=== PATIENT | male | born 1955 | race African-American/Black ===

== ENCOUNTER 2019-09-06 16:47 | Inpatient (IN) | payer MEDICAID ==
[2019-09-06 21:06] VITALS: BP 141/71
[2019-09-06] MEDS ORDERED: Acetaminophen 500 MG TAB PO PRN (22:41)
[2019-09-06] MEDS ORDERED: Maalox 30 mL Cup PO PRN (22:41)
[2019-09-06] MEDS ORDERED: Magnesium Hydroxide (MOM) 30 mL UDC PO PRN (22:41)
--- NOTE | 2019-09-07 09:29 | History & Physical ---
ADMIT DATE: 09/06/2019 IDENTIFYING INFORMATION: The patient is a 64-year-old male. CHIEF COMPLAINT: Unable to move around. HISTORY OF PRESENT ILLNESS: The patient was admitted, came from [facility] on a hold for danger to self, grave disability. The patient with left-sided hemiparesis on a wheelchair. When I talked to the patient, he was reported that he used cocaine last week. He reports has been depressed for the last 6 months. Unable to sleep. Appetite is good. He said sometimes he gets suicidal. He said he tried to strangle himself 2 weeks ago with a rope. He hear voices for the last 2 weeks, telling him to burn himself, kill himself, but he was willing to contract for safety. He has a history of being hospitalized at least 3 times because of his psychiatric condition, he is not sure what medication he was on. Onset of mental illness, the patient reports it was going on for the last 6 months, but has prior depression before that. Unable to be more specific. PAST PSYCHIATRIC HISTORY: The patient has been hospitalized at least 3 times. He reports he tried to strangle himself 2 weeks ago with a rope. He has been using cocaine. Substance abuse using cocaine, last used last week. He uses drugs. Unable to be specific. MEDICAL HISTORY: The patient is on a wheelchair. Hemiparesis on the left side. ALLERGIES: The patient has no known drug allergy. MEDICATIONS: He has been on Remeron 15 mg at bedtime. FAMILY HISTORY: Denies family psychiatric disorder. SOCIAL HISTORY: The patient reports he is single, never , no children. Education is 10th grade education. 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 No family psychiatric disorder, no history of abuse. MENTAL STATUS EXAMINATION: The patient is appropriately dressed, not well groomed. He was alert. He was not a very good historian. He knew that this is either July or August and its 2020. Unable to make more specific, unable tell me who is the President of [employer]. Admits to feeling depressed with decreased energy, decreased motivation, tried to kill himself 2 weeks ago. Unable to sleep. Appetite is okay. He reports that hearing voices last 2 weeks to burn, kill himself, but he reports he is not hearing them today. He denies any intent to harm anyone. He seems to have average intelligence just by able to give information, fund of knowledge. However, he is not very specific about the date. He does not know the President of [facility]. Concentration is poor. Sometimes unable to answer questions appropriately for forward and backward. Long-term is good for age, date of . Recent memory is good. He knows the reason for him being here. He knows what he ate for breakfast. Immediate memory is poor, unable to repeat things after me. Insight about his illness is fair. He now has a problem. Judgment is poor with him, wanting to harm himself. IMPRESSION: Major depression, recurrent, severe with psychosis, cocaine abuse. MEDICAL DIAGNOSIS: Deferred to the medical doctor. His assets, he wants to get help. Negative poor coping skills. PLAN: The patient will be started on Seroquel, will do group therapy, milieu therapy, and individual therapy. ESTIMATED LENGTH OF STAY: 3-7 days. DISCHARGE CRITERIA: Decreasing depression, psychosis. No longer suicidal after discharge, outpatient treatment. JOB# [id number] MTDBakari
[2019-09-07 14:09] LABS: CHOLESTEROL 130 mg/dL (<200); TRIGLYCERIDES 86 mg/dL (30-150)
[2019-09-07 14:10] LABS: LDL CHOLESTEROL 87 mg/dL (0-129)
[2019-09-07 14:22] LABS: GLUCOSE,URINE NEGATIVE (NEGATIVE); URINE BILIRUBIN NEGATIVE (NEGATIVE); URINE CLARITY CLEAR (CLEAR); URINE COLOR YELLOW (YELLOW); URINE KETONE NEGATIVE (NEGATIVE)
[2019-09-07 14:23] LABS: BLOOD, URINE TRACE (NEGATIVE); LEUKOCYTE ESTERASE ,URINE NEGATIVE (NEGATIVE); PROTEIN URINE TRACE (NEGATIVE); URINE NITRATE NEGATIVE (NEGATIVE); URINE PH 5.5 (5.0-8.0)
--- NOTE | 2019-09-07 14:32 | History & Physical ---
ADMIT DATE: HISTORY OF PRESENT ILLNESS: We have a 64-year-old male with HIV, who is admitted for suicidal ideations. The patient did coke and said he wanted to kill himself. The patient has known history of AFib flutter, COPD, heart failure, history of stroke. At this time, the patient has no chest pain, shortness of breath, no nausea, vomiting, abdominal pain, diarrhea. PAST MEDICAL HISTORY: As mentioned above. HIV, COPD, AFib, hypertension, heart failure, history of stroke. MEDICATIONS: List reviewed. ALLERGIES: None. SOCIAL HISTORY: Tobacco, IV drugs, ETOH negative rather than coke. PHYSICAL EXAMINATION: VITAL SIGNS: Temperature is 98.2, pulse 98, respirations 20, blood pressure 114/98, satting 99% on room air. HEENT: Normocephalic, atraumatic head exam. NECK: Supple. CARDIOVASCULAR: Regular rate and rhythm. LUNGS: Decreased breath sounds. ABDOMEN: Soft, nontender. EXTREMITIES: No edema, cyanosis or clubbing. Cranial nerve exam--grossly nonfocal although patient not cooperative ASSESSMENT AND PLAN: 1. Human immunodeficiency virus. 2. Chronic obstructive pulmonary disease. 3. Congestive heart failure. 4. Atrial fibrillation flutter, on Xarelto. The patient will continue these medications during the hospitalization. We will get a COVID screen, CBC, CMP. JOB# [id number] RAMIRO
[2019-09-07] MEDS: INSULIN LISPRO SLIDING SCALE 100 UNITS/ML UNIT SUBQ SCH (22:00)
[2019-09-08] MEDS: INSULIN LISPRO SLIDING SCALE 100 UNITS/ML UNIT SUBQ SCH ×5 (06:59→21:16)
[2019-09-08] MEDS: Potassium Chloride 20 mEq ER Tab PO SCH (08:35)
[2019-09-08] MEDS ORDERED: [UNRECOGNIZED DRUG - OTHER] PO SCH (09:00)
--- NOTE | 2019-09-08 13:56 | Internal Medicine Prog Note ---
Internal Medicine Subjective - Subjective Service Date: 09/08/19 Patient seen and examined:: without staff Patient is:: awake Per staff patient has:: no adverse event, no episodes of fall Internal Medicine Objective - Results Recent Labs: Laboratory Last Values POC Glucose 165 MG/DL (70 - 105) H 09/08/19 11:19 Triglycerides 86 mg/dL (30-150) 09/07/19 09:59 Cholesterol 130 mg/dL (<200) 09/07/19 09:59 LDL Cholesterol 87 mg/dL (0-129) 09/07/19 09:59 HDL Cholesterol 35 mg/dL (>45) L 09/07/19 09:59 Urine Color YELLOW (YELLOW) 09/06/19 22:00 Urine Clarity CLEAR (CLEAR) 09/06/19 22:00 Urine pH 5.5 (5.0-8.0) 09/06/19 22:00 Ur Specific [place] 1.020 (1.005-1.030) 09/06/19 22:00 Urine Protein TRACE (NEGATIVE) H 09/06/19 22:00 Urine Ketones NEGATIVE (NEGATIVE) 09/06/19 22:00 Urine Blood TRACE (NEGATIVE) H 09/06/19 22:00 Urine Nitrate NEGATIVE (NEGATIVE) 09/06/19 22:00 Urine Bilirubin NEGATIVE (NEGATIVE) 09/06/19 22:00 Urine Urobilinogen 2.0 (0.2-1.0) H 09/06/19 22:00 Ur Leukocyte Esterase NEGATIVE (NEGATIVE) 09/06/19 22:00 Urine Glucose NEGATIVE (NEGATIVE) 09/06/19 22:00 - Physical Exam Vitals and I&O: Vital Signs Temp 98.1 F 09/08/19 06:19 Pulse 80 09/08/19 08:37 Resp 20 09/08/19 07:58 BP 146/75 09/08/19 08:37 Pulse Ox 99 09/08/19 06:19 Intake & Output 09/07/19 09/08/19 09/08/19 18:59 06:59 18:59 Intake Total 900 120 Balance 900 120 Intake: Oral 900 120 Other: # Voids 3 3 # Bowel Movements 1 Active Medications: Current Medications Acetaminophen (Tylenol) 650 mg PO Q4H PRN PRN Reason: Pain (Mild 1-3) Stop: 11/05/19 22:40 Acetaminophen (Tylenol Extra Strength) 1,000 mg PO Q6H PRN PRN Reason: Pain (Moderate 4-6) Stop: 11/05/19 22:40 Acetaminophen (Tylenol) 650 mg PO Q4H PRN PRN Reason: Temperature Above 100.4 Stop: 11/05/19 22:43 Al Hydrox/Mg Hydrox/Simethicone (Maalox) 30 ml PO Q4HR PRN PRN Reason: GI DISTRESS Stop: 11/05/19 22:40 Last Admin: 09/08/19 08:35 Dose: 30 ml Aspirin (Ecotrin) 81 mg PO DAILY [facility] Stop: 11/07/19 08:59 Last Admin: 09/08/19 08:35 Dose: 81 mg Atorvastatin Calcium (Lipitor) 40 mg PO HS [facility] Stop: 11/06/19 20:59 Last Admin: 09/07/19 22:13 Dose: 40 mg Famotidine (Pepcid) 20 mg PO BID [facility] Stop: 11/07/19 08:59 Last Admin: 09/08/19 08:35 Dose: 20 mg Furosemide (Lasix) 80 mg PO DAILY [facility] Stop: 11/07/19 08:59 Last Admin: 09/08/19 08:35 Dose: 80 mg Ibuprofen (Motrin) 400 mg PO Q4H PRN PRN Reason: Pain (Severe 7-10) Stop: 11/05/19 22:40 Insulin Human Lispro (Humalog Insulin Sliding Scale) 0 units SUBQ ACHS [facility]; Protocol Stop: 11/06/19 20:59 Last Admin: 09/08/19 11:22 Dose: 2 units Lisinopril (Zestril) 5 mg PO DAILY [facility] Stop: 11/07/19 08:59 Last Admin: 09/08/19 08:37 Dose: 5 mg Lorazepam (Ativan) 0.5 mg PO Q6HR PRN; Protocol PRN Reason: Anxiety Stop: 11/06/19 06:44 Last Admin: 09/08/19 13:20 Dose: 0.5 mg Magnesium Hydroxide (Milk Of Magnesia) 30 ml PO HS PRN PRN Reason: Constipation Metoprolol Succinate (Toprol Xl) 200 mg PO DAILY [facility] Stop: 11/07/19 08:59 Last Admin: 09/08/19 08:36 Dose: 200 mg Mirtazapine (Remeron) 15 mg PO HS [facility]; Protocol Stop: 11/06/19 20:59 Last Admin: 09/07/19 21:19 Dose: 15 mg Miscellaneous (Bictegrav/Emtricit/Tenofov Ala [Biktarvy 50-200-25 Mg Tablet]) 1 each PO DAILY [facility] Stop: 11/07/19 08:59 Patient Own Med- Biktarvy ( Bictegravir/Emtricitabine/Tenofovir) 1 PO DAILY [facility] Stop: 11/08/19 08:59 Potassium Chloride (Klor-Con) 20 meq PO DAILY [facility] Stop: 11/07/19 08:59 Last Admin: 09/08/19 08:35 Dose: 20 meq Quetiapine Fumarate (Seroquel) 100 mg PO BID [facility]; Protocol Stop: 11/07/19 16:59 Rivaroxaban (Xarelto) 20 mg PO HS [facility] Stop: 11/06/19 20:59 Last Admin: 09/07/19 22:01 Dose: Not Given General: weak HEENT: NC/AT, PERRLA Neck: Supple Lungs: CTAB Cardiovascular: RRR, Normal S1, Normal S2 Abdomen: soft Extremities: clear Internal Medicine Assmt/Plan - Assessment Assessment: 1. HIV 2. COPD 3. CHF 4. A.fib - Plan Plan: continue cardiac meds continue HIV meds d/w r.n. reviewed complete medical records
[2019-09-08 14:11] LABS: A1C 6.3
--- NOTE | 2019-09-08 22:31 | Progress Notes ---
DATE: 09/08/2019 SUBJECTIVE: Case was discussed with staff of the patient, reviewed records. The patient continues to be depressed, overwhelmed, hearing voices to kill himself. He wants to harm himself. He tried to strangle himself 2 weeks ago. He is also on detox from the alcohol. The patient has been hospitalized at least 3 times. Continues to have poor insight, easily agitated, and irritable. He has not slept well last night, unable to manage to participate in meaningful conversation or make safe plan for self-care, still, however, reports hearing voices to kill himself. He wants to kill himself. No side effects with the medication, no sedation, no nausea, no extrapyramidal symptoms. I will be increasing his Seroquel to 100 mg twice a day. No side effects. We will continue outpatient group therapy, milieu therapy, and adjust medication as needed. JOB# [id number]
[2019-09-09] MEDS: INSULIN LISPRO SLIDING SCALE 100 UNITS/ML UNIT SUBQ SCH ×4 (06:34→20:39)
[2019-09-09] MEDS: Potassium Chloride 20 mEq ER Tab PO SCH (09:01)
[2019-09-09] MEDS: BIKTARVY PO SCH (10:23)
--- NOTE | 2019-09-09 15:13 | Internal Medicine Prog Note ---
Internal Medicine Subjective - Subjective Service Date: 09/09/19 Patient seen and examined:: without staff Patient is:: awake Per staff patient has:: no adverse event, no episodes of fall Internal Medicine Objective - Results Recent Labs: Laboratory Last Values POC Glucose 84 MG/DL (70 - 105) 09/09/19 06:22 Triglycerides 86 mg/dL (30-150) 09/07/19 09:59 Cholesterol 130 mg/dL (<200) 09/07/19 09:59 LDL Cholesterol 87 mg/dL (0-129) 09/07/19 09:59 HDL Cholesterol 35 mg/dL (>45) L 09/07/19 09:59 Urine Color YELLOW (YELLOW) 09/06/19 22:00 Urine Clarity CLEAR (CLEAR) 09/06/19 22:00 Urine pH 5.5 (5.0-8.0) 09/06/19 22:00 Ur Specific [place] 1.020 (1.005-1.030) 09/06/19 22:00 Urine Protein TRACE (NEGATIVE) H 09/06/19 22:00 Urine Ketones NEGATIVE (NEGATIVE) 09/06/19 22:00 Urine Blood TRACE (NEGATIVE) H 09/06/19 22:00 Urine Nitrate NEGATIVE (NEGATIVE) 09/06/19 22:00 Urine Bilirubin NEGATIVE (NEGATIVE) 09/06/19 22:00 Urine Urobilinogen 2.0 (0.2-1.0) H 09/06/19 22:00 Ur Leukocyte Esterase NEGATIVE (NEGATIVE) 09/06/19 22:00 Urine Glucose NEGATIVE (NEGATIVE) 09/06/19 22:00 - Physical Exam Vitals and I&O: Vital Signs Temp 97.5 F 09/09/19 14:43 Pulse 81 09/09/19 14:43 Resp 20 09/09/19 14:43 BP 105/56 09/09/19 14:43 Pulse Ox 98 09/09/19 14:43 Intake & Output 09/08/19 09/09/19 09/09/19 18:59 06:59 18:59 Intake Total 1200 120 Balance 1200 120 Intake: Oral 1200 120 Other: # Voids 3 # Bowel Movements 1 Active Medications: Current Medications Acetaminophen (Tylenol) 650 mg PO Q4H PRN PRN Reason: Pain (Mild 1-3) Stop: 11/05/19 22:40 Acetaminophen (Tylenol Extra Strength) 1,000 mg PO Q6H PRN PRN Reason: Pain (Moderate 4-6) Stop: 11/05/19 22:40 Acetaminophen (Tylenol) 650 mg PO Q4H PRN PRN Reason: Temperature Above 100.4 Stop: 11/05/19 22:43 Al Hydrox/Mg Hydrox/Simethicone (Maalox) 30 ml PO Q4HR PRN PRN Reason: GI DISTRESS Stop: 11/05/19 22:40 Last Admin: 09/08/19 08:35 Dose: 30 ml Aspirin (Ecotrin) 81 mg PO DAILY [facility] Stop: 11/07/19 08:59 Last Admin: 09/09/19 09:02 Dose: 81 mg Atorvastatin Calcium (Lipitor) 40 mg PO HS [facility] Stop: 11/06/19 20:59 Last Admin: 09/08/19 20:57 Dose: 40 mg Famotidine (Pepcid) 20 mg PO BID [facility] Stop: 11/07/19 08:59 Last Admin: 09/09/19 09:01 Dose: 20 mg Furosemide (Lasix) 80 mg PO DAILY [facility] Stop: 11/07/19 08:59 Last Admin: 09/09/19 09:02 Dose: 80 mg Ibuprofen (Motrin) 400 mg PO Q4H PRN PRN Reason: Pain (Severe 7-10) Stop: 11/05/19 22:40 Insulin Human Lispro (Humalog Insulin Sliding Scale) 0 units SUBQ ACHS [facility]; Protocol Stop: 11/06/19 20:59 Last Admin: 09/09/19 11:45 Dose: Not Given Lisinopril (Zestril) 5 mg PO DAILY [facility] Stop: 11/07/19 08:59 Last Admin: 09/09/19 09:03 Dose: 5 mg Lorazepam (Ativan) 0.5 mg PO Q6HR PRN; Protocol PRN Reason: Anxiety Stop: 11/06/19 06:44 Last Admin: 09/08/19 13:20 Dose: 0.5 mg Magnesium Hydroxide (Milk Of Magnesia) 30 ml PO HS PRN PRN Reason: Constipation Metoprolol Succinate (Toprol Xl) 200 mg PO DAILY [facility] Stop: 11/07/19 08:59 Last Admin: 09/09/19 09:02 Dose: 200 mg Mirtazapine (Remeron) 15 mg PO HS [facility]; Protocol Stop: 11/06/19 20:59 Last Admin: 09/08/19 20:58 Dose: 15 mg Patient Own Med- Biktarvy ( Bictegravir/Emtricitabine/Tenofovir) 1 PO DAILY [facility] Stop: 11/08/19 08:59 Last Admin: 09/09/19 10:23 Dose: 1 Potassium Chloride (Klor-Con) 20 meq PO DAILY [facility] Stop: 11/07/19 08:59 Last Admin: 09/09/19 09:01 Dose: 20 meq Quetiapine Fumarate (Seroquel) 200 mg PO BID [facility]; Protocol Stop: 11/08/19 16:59 Rivaroxaban (Xarelto) 20 mg PO HS [facility] Stop: 11/06/19 20:59 Last Admin: 09/08/19 20:58 Dose: 20 mg General: weak HEENT: NC/AT, PERRLA Neck: Supple Lungs: CTAB Cardiovascular: RRR, Normal S1, Normal S2 Abdomen: soft Extremities: clear Internal Medicine Assmt/Plan - Assessment Assessment: 1. HIV 2. COPD 3. CHF 4. A.fib - Plan Plan: continue cardiac meds continue HIV meds d/w r.n. reviewed complete medical records Nutritional Asmnt/Malnutr-PDOC - Dietary Evaluation Malnutrition Findings (Please click <Entered> for more info): Nutritional Asmnt/Malnutrition Start: 09/09/19 13: 07 Text: Status: Complete Freq: Protocol: Document 09/09/19 13:07 ANA ROSA (Rec: 09/09/19 13:13 ANA ROSA [id number]) Nutritional Asmnt/Malnutrition Patient General Information Nutritional Screening Moderate Risk Diagnosis Suicidal Ideations Pertinent Medical Hx/Surgical Hx HIV, COPD, AFib, HTN, Heart Failure, Hx Stroke Subjective Information Pt is a 64-year-old male admitted on 09/05 d/t DTS and GD. Pt is eating an estimated 100% of meals since admit date (x2 days) Per Meal/Nutrition Activity Record. Dietary is currently providing an estimated 2100 kcals and 100 gm Pro to meet 100% kcal and 100+% Pro needs. Anthropometrics HT: 59 WT: 173 LB (78.64 kg) BMI: 25.54 (normal) GI/ Skin Integrity GI: WNL, Soft, Non-tender BM: 09/07 x1 I/O: 1320/Not Noted Skin: WNL, Intact Osbaldo: 17 Diet Order: Cardiac Estimated Energy Needs: ( Geriatric, CBW) 8891-0935 kcals (25-30 kcals/ kg) 80-95g Pro (1.0-1.2 g/kg) 5863-9997 ml (25-30 ml/kg) Pertinent Medications Maalox (PRN), Lipitor, Pepcid, Lasix, INS-SS, MOM (PRN), Klor-Con Pertinent Labs POC Glucose (last 24 hours): 101, 165, 118, 84 09/06: HDL 35, Urine Protein Trace Nutritional Hx/Data Height 1.75 m Height (Calculated Centimeters) 175.3 Current Weight (lbs) 78.471 kg Weight (Calculated Kilograms) 78.5 Weight (Calculated Grams) 19528.5 Lowry Body Weight 160 LB (72.73 kg) % [place] Body Weight 108 Body Mass Index (BMI) 25.5 Weight Status Approriate GI Symptoms GI Symptoms None Last BM 09/07 x1 Skin Integrity/Comment: Skin: WNL, Intact Osbaldo: 17 Current %PO Good (75-100%) Estimated Nutritional Goals BEE in Kcals: Using Current wt Calories/Kcals/Kg 25-30 Kcals Calculated 6733-0544 Protein: Using Current wt Protein g/k.0-1.2 Protein Calculated 80-95 Fluid: ml 4174-8107 ml (25-30 ml/kg) Nutritional Problem 1. Problem Problem Altered nutrition related labs Etiology r/t pathophysiological causes Signs/Symptoms: aeb POC Glucose (last 24 hours ): 101, 165, 118, 84. Malnutrition Related to Morbid Obesity Malnutrition related to morbid obesity No Intervention/Recommendation Comments Continue Cardiac diet as tolerated. Expected Outcomes/Goals Expected Outcomes/Goals 1.PO intake to continue to meet >75% of estimated nutritional needs. 2.Monitor PO intake, wt, nutrition related labs to trend WNL, and skin integrity. 3.F/U as low risk in 7-10 days , 09/15-09/18.
--- NOTE | 2019-09-09 19:55 | Progress Notes ---
DATE: 09/09/2019 Case was discussed with staff of the patient, reviewed records. still hearing voices. Consents that voice sometimes tell him to harm himself, but he said those are not as prominent. He is sleeping better, eating better. Continues to be unpredictable, impulsive. Continues to have poor insight in general. No side effects with the medication, no sedation, no nausea, no extrapyramidal symptoms. The patient will continue 1:1 observation because of command hallucination to kill himself and I will be increasing his dose of Seroquel to help with his psychotic symptoms and lack of sleep. We will continue the patient in group therapy, milieu therapy, and adjust medication as needed. JOB# [id number] RAMIRO
[2019-09-10] MEDS: INSULIN LISPRO SLIDING SCALE 100 UNITS/ML UNIT SUBQ SCH ×4 (06:54→20:05)
[2019-09-10] MEDS: Potassium Chloride 20 mEq ER Tab PO SCH (08:07)
[2019-09-10] MEDS: BIKTARVY PO SCH (08:08)
[2019-09-11] MEDS: INSULIN LISPRO SLIDING SCALE 100 UNITS/ML UNIT SUBQ SCH ×4 (06:39→21:59)
--- NOTE | 2019-09-11 07:56 | Progress Notes ---
DATE: SUBJECTIVE: The patient was seen, chart reviewed, and discussed with staff. The patient states that he is still hearing auditory hallucinations telling him to harm himself, but does state that they are easier to resist now. He reports good sleep and appetite has been compliant with medications, denying any side effects. PLAN: The patient continues to be actively psychotic with hallucinations telling him to hurt himself, so that he will require inpatient care center and treatment. We will monitor on a daily basis for response to medication and titrate medications as needed. JOB# [id number]
[2019-09-11] MEDS: Potassium Chloride 20 mEq ER Tab PO SCH (08:48)
[2019-09-11] MEDS: BIKTARVY PO SCH (11:51)
--- NOTE | 2019-09-11 17:38 | Progress Notes ---
DATE: SUBJECTIVE: The patient was seen, chart reviewed, and discussed with staff. The patient continues to endorse command hallucinations telling him to hurt himself. The patient has been compliant with medications, denying any undue side effects and has not required any p.r.n. medications and denies any undue side effects. PLAN: The patient continues to be actively psychotic with command hallucinations that he will require inpatient care center and treatment. We will monitor the patient on a daily basis for response to medications and titrate medications as needed. JOB# [id number]
[2019-09-12] MEDS: INSULIN LISPRO SLIDING SCALE 100 UNITS/ML UNIT SUBQ SCH ×4 (06:46→20:52)
[2019-09-12] MEDS: Potassium Chloride 20 mEq ER Tab PO SCH (09:44)
[2019-09-12] MEDS: BIKTARVY PO SCH (09:46)
--- NOTE | 2019-09-12 23:20 | Progress Notes ---
DATE: 09/12/2019 Case was discussed with staff of the patient, reviewed records. The patient continues to report hearing voices. He continues to have thoughts of wanting to harm himself; however, he is willing to contract for safety. He is still unpredictable, impulsive, needing redirection. I will be increasing his Seroquel to 300 mg twice a day. No side effects with the medication, no sedation, no nausea, no extrapyramidal symptoms. We will continue outpatient group therapy, milieu therapy, adjust medication as needed. JOB# [id number]
[2019-09-13] MEDS: INSULIN LISPRO SLIDING SCALE 100 UNITS/ML UNIT SUBQ SCH ×4 (06:34→21:47)
[2019-09-13] MEDS: Potassium Chloride 20 mEq ER Tab PO SCH (08:35)
[2019-09-13] MEDS: BIKTARVY PO SCH (08:37)
--- NOTE | 2019-09-13 18:14 | Internal Medicine Prog Note ---
Internal Medicine Subjective - Subjective Service Date: 09/13/19 Patient seen and examined:: without staff (no bleeding no bruises) Patient is:: awake Per staff patient has:: no adverse event, no episodes of fall Internal Medicine Objective - Results Recent Labs: Laboratory Last Values POC Glucose 119 MG/DL (70 - 105) H 09/13/19 10:40 Triglycerides 86 mg/dL (30-150) 09/07/19 09:59 Cholesterol 130 mg/dL (<200) 09/07/19 09:59 LDL Cholesterol 87 mg/dL (0-129) 09/07/19 09:59 HDL Cholesterol 35 mg/dL (>45) L 09/07/19 09:59 Urine Color YELLOW (YELLOW) 09/06/19 22:00 Urine Clarity CLEAR (CLEAR) 09/06/19 22:00 Urine pH 5.5 (5.0-8.0) 09/06/19 22:00 Ur Specific [place] 1.020 (1.005-1.030) 09/06/19 22:00 Urine Protein TRACE (NEGATIVE) H 09/06/19 22:00 Urine Ketones NEGATIVE (NEGATIVE) 09/06/19 22:00 Urine Blood TRACE (NEGATIVE) H 09/06/19 22:00 Urine Nitrate NEGATIVE (NEGATIVE) 09/06/19 22:00 Urine Bilirubin NEGATIVE (NEGATIVE) 09/06/19 22:00 Urine Urobilinogen 2.0 (0.2-1.0) H 09/06/19 22:00 Ur Leukocyte Esterase NEGATIVE (NEGATIVE) 09/06/19 22:00 Urine Glucose NEGATIVE (NEGATIVE) 09/06/19 22:00 - Physical Exam Vitals and I&O: Vital Signs Temp 96.8 F 09/13/19 06:20 Pulse 83 09/13/19 08:36 Resp 18 09/13/19 07:27 BP 111/58 09/13/19 08:36 Pulse Ox 98 09/13/19 06:20 Intake & Output 09/12/19 09/13/19 09/13/19 18:59 06:59 18:59 Intake Total 9014 612 6045 Balance 7793 300 6210 Intake: Oral 8676 966 8817 Other: # Voids 4 3 3 # Bowel Movements 1 0 1 Active Medications: Current Medications Acetaminophen (Tylenol) 650 mg PO Q4H PRN PRN Reason: Pain (Mild 1-3) Stop: 11/05/19 22:40 Acetaminophen (Tylenol Extra Strength) 1,000 mg PO Q6H PRN PRN Reason: Pain (Moderate 4-6) Stop: 11/05/19 22:40 Acetaminophen (Tylenol) 650 mg PO Q4H PRN PRN Reason: Temperature Above 100.4 Stop: 11/05/19 22:43 Al Hydrox/Mg Hydrox/Simethicone (Maalox) 30 ml PO Q4HR PRN PRN Reason: GI DISTRESS Stop: 11/05/19 22:40 Last Admin: 09/08/19 08:35 Dose: 30 ml Aspirin (Ecotrin) 81 mg PO DAILY [facility] Stop: 11/07/19 08:59 Last Admin: 09/13/19 08:35 Dose: 81 mg Atorvastatin Calcium (Lipitor) 40 mg PO HS [facility] Stop: 11/06/19 20:59 Last Admin: 09/12/19 20:53 Dose: 40 mg Famotidine (Pepcid) 20 mg PO BID [facility] Stop: 11/07/19 08:59 Last Admin: 09/13/19 16:05 Dose: 20 mg Furosemide (Lasix) 80 mg PO DAILY [facility] Stop: 11/07/19 08:59 Last Admin: 09/13/19 08:35 Dose: Not Given Ibuprofen (Motrin) 400 mg PO Q4H PRN PRN Reason: Pain (Severe 7-10) Stop: 11/05/19 22:40 Insulin Human Lispro (Humalog Insulin Sliding Scale) 0 units SUBQ ACHS [facility]; Protocol Stop: 11/06/19 20:59 Last Admin: 09/13/19 16:35 Dose: Not Given Lisinopril (Zestril) 5 mg PO DAILY [facility] Stop: 11/07/19 08:59 Last Admin: 09/13/19 08:36 Dose: Not Given Lorazepam (Ativan) 0.5 mg PO Q6HR PRN; Protocol PRN Reason: Anxiety Stop: 11/06/19 06:44 Last Admin: 09/08/19 13:20 Dose: 0.5 mg Magnesium Hydroxide (Milk Of Magnesia) 30 ml PO HS PRN PRN Reason: Constipation Metoprolol Succinate (Toprol Xl) 200 mg PO DAILY [facility] Stop: 11/07/19 08:59 Last Admin: 09/13/19 08:36 Dose: Not Given Mirtazapine (Remeron) 15 mg PO HS [facility]; Protocol Stop: 11/06/19 20:59 Last Admin: 09/12/19 20:53 Dose: 15 mg Patient Own Med- Biktarvy ( Bictegravir/Emtricitabine/Tenofovir) 1 PO DAILY [facility] Stop: 11/08/19 08:59 Last Admin: 09/13/19 08:37 Dose: Not Given Potassium Chloride (Klor-Con) 20 meq PO DAILY [facility] Stop: 11/07/19 08:59 Last Admin: 09/13/19 08:35 Dose: 20 meq Quetiapine Fumarate (Seroquel) 300 mg PO BID [facility]; Protocol Stop: 11/11/19 16:59 Last Admin: 09/13/19 16:05 Dose: 300 mg Rivaroxaban (Xarelto) 20 mg PO HS [facility] Stop: 11/06/19 20:59 Last Admin: 09/12/19 20:53 Dose: 20 mg General: weak HEENT: NC/AT, PERRLA Neck: Supple Lungs: CTAB Cardiovascular: RRR, Normal S1, Normal S2 Abdomen: soft Extremities: clear Internal Medicine Assmt/Plan - Assessment Assessment: 1. HIV 2. COPD 3. CHF 4. A.fib - Plan Plan: check cbc, cmp check covid continue xarelto 20 mg po daily no evidence of bleeding continue HIV meds d/w r.n. reviewed complete medical records Nutritional Asmnt/Malnutr-PDOC - Dietary Evaluation Malnutrition Findings (Please click <Entered> for more info): Nutritional Asmnt/Malnutrition Start: 09/09/19 13: 07 Text: Status: Complete Freq: Protocol: Document 09/09/19 13:07 ANA ROSA (Rec: 09/09/19 13:13 ANA ROSA MICHEL-CTXTS -[id number]) Nutritional Asmnt/Malnutrition Patient General Information Nutritional Screening Moderate Risk Diagnosis Suicidal Ideations Pertinent Medical Hx/Surgical Hx HIV, COPD, AFib, HTN, Heart Failure, Hx Stroke Subjective Information Pt is a 64-year-old male admitted on 09/05 d/t DTS and GD. Pt is eating an estimated 100% of meals since admit date (x2 days) Per Meal/Nutrition Activity Record. Dietary is currently providing an estimated 2100 kcals and 100 gm Pro to meet 100% kcal and 100+% Pro needs. Anthropometrics HT: 59 WT: 173 LB (78.64 kg) BMI: 25.54 (normal) GI/ Skin Integrity GI: WNL, Soft, Non-tender BM: 09/07 x1 I/O: 1320/Not Noted Skin: WNL, Intact [place]: 17 Diet Order: Cardiac Estimated Energy Needs: ( Geriatric, CBW) 1383-1590 kcals (25-30 kcals/ kg) 80-95g Pro (1.0-1.2 g/kg) 5995-4681 ml (25-30 ml/kg) Pertinent Medications Maalox (PRN), Lipitor, Pepcid, Lasix, INS-SS, MOM (PRN), Klor-Con Pertinent Labs POC Glucose (last 24 hours): 101, 165, 118, 84 09/06: HDL 35, Urine Protein Trace Nutritional Hx/Data Height 1.75 m Height (Calculated Centimeters) 175.3 Current Weight (lbs) 78.471 kg Weight (Calculated Kilograms) 78.5 Weight (Calculated Grams) 25356.5 [place] Body Weight 160 LB (72.73 kg) % [place] Body Weight 108 Body Mass Index (BMI) 25.5 Weight Status Approriate GI Symptoms GI Symptoms None Last BM 09/07 x1 Skin Integrity/Comment: Skin: WNL, Intact [place]: 17 Current %PO Good (75-100%) Estimated Nutritional Goals BEE in Kcals: Using Current wt Calories/Kcals/Kg 25-30 Kcals Calculated 8050-5008 Protein: Using Current wt Protein g/k.0-1.2 Protein Calculated 80-95 Fluid: ml 6971-3157 ml (25-30 ml/kg) Nutritional Problem 1. Problem Problem Altered nutrition related labs Etiology r/t pathophysiological causes Signs/Symptoms: aeb POC Glucose (last 24 hours ): 101, 165, 118, 84. Malnutrition Related to Morbid Obesity Malnutrition related to morbid obesity No Intervention/Recommendation Comments Continue Cardiac diet as tolerated. Expected Outcomes/Goals Expected Outcomes/Goals 1.PO intake to continue to meet >75% of estimated nutritional needs. 2.Monitor PO intake, wt, nutrition related labs to trend WNL, and skin integrity. 3.F/U as low risk in 7-10 days , 09/15-09/18.
--- NOTE | 2019-09-13 20:52 | Progress Notes ---
DATE: 09/13/2019 Case was discussed with staff of the patient, reviewed records. The patient continues to report hearing voices. Continues to have thoughts of wanting to harm himself. He tolerated increase in Seroquel to 300 mg twice a day yesterday with no side effects, no sedation, no nausea, no extrapyramidal symptoms. Sleeping better, eating better. We will continue outpatient group therapy, milieu therapy, adjust medication as needed. JOB# [id number]
[2019-09-14] MEDS: INSULIN LISPRO SLIDING SCALE 100 UNITS/ML UNIT SUBQ SCH ×4 (06:32→21:15)
[2019-09-14] MEDS: Potassium Chloride 20 mEq ER Tab PO SCH (08:25)
[2019-09-14] MEDS: BIKTARVY PO SCH (08:28)
--- NOTE | 2019-09-14 10:50 | Progress Notes ---
DATE: 09/14/2019 Case was discussed with staff of the patient, reviewed records. The patient was out of the room socializing more. He reported the voices are not as prominent. He reports he continues to have thoughts of wanting to harm himself. He reports that he continues to be overwhelmed with episodes of wanting to harm himself, but willing to contract for safety while in the hospital. No side effects with the medication, no sedation, no nausea, no extrapyramidal symptoms. I will be increasing his Seroquel to 350 mg twice a day to help decrease psychotic symptoms, depression and help him sleep better and his vital signs stable. We will continue outpatient group therapy, milieu therapy, adjust medication as needed. [facility]# [id number]
--- NOTE | 2019-09-14 14:17 | Internal Medicine Prog Note ---
Internal Medicine Subjective - Subjective Service Date: 09/14/19 Patient seen and examined:: without staff Patient is:: awake Per staff patient has:: no adverse event, no episodes of fall Internal Medicine Objective - Results Recent Labs: Laboratory Last Values POC Glucose 101 MG/DL (70 - 105) 09/14/19 11:17 Triglycerides 86 mg/dL (30-150) 09/07/19 09:59 Cholesterol 130 mg/dL (<200) 09/07/19 09:59 LDL Cholesterol 87 mg/dL (0-129) 09/07/19 09:59 HDL Cholesterol 35 mg/dL (>45) L 09/07/19 09:59 Urine Color YELLOW (YELLOW) 09/06/19 22:00 Urine Clarity CLEAR (CLEAR) 09/06/19 22:00 Urine pH 5.5 (5.0-8.0) 09/06/19 22:00 Ur Specific [place] 1.020 (1.005-1.030) 09/06/19 22:00 Urine Protein TRACE (NEGATIVE) H 09/06/19 22:00 Urine Ketones NEGATIVE (NEGATIVE) 09/06/19 22:00 Urine Blood TRACE (NEGATIVE) H 09/06/19 22:00 Urine Nitrate NEGATIVE (NEGATIVE) 09/06/19 22:00 Urine Bilirubin NEGATIVE (NEGATIVE) 09/06/19 22:00 Urine Urobilinogen 2.0 (0.2-1.0) H 09/06/19 22:00 Ur Leukocyte Esterase NEGATIVE (NEGATIVE) 09/06/19 22:00 Urine Glucose NEGATIVE (NEGATIVE) 09/06/19 22:00 - Physical Exam Vitals and I&O: Vital Signs Temp 97.8 F 09/14/19 06:20 Pulse 91 09/14/19 08:28 Resp 20 09/14/19 08:00 BP 119/72 09/14/19 08:28 Pulse Ox 97 09/14/19 06:20 Intake & Output 09/13/19 09/14/19 09/14/19 18:59 06:59 18:59 Intake Total 1200 240 Balance 1200 240 Intake: Oral 1200 240 Other: # Voids 3 3 # Bowel Movements 1 0 Active Medications: Current Medications Acetaminophen (Tylenol) 650 mg PO Q4H PRN PRN Reason: Pain (Mild 1-3) Stop: 11/05/19 22:40 Acetaminophen (Tylenol Extra Strength) 1,000 mg PO Q6H PRN PRN Reason: Pain (Moderate 4-6) Stop: 11/05/19 22:40 Acetaminophen (Tylenol) 650 mg PO Q4H PRN PRN Reason: Temperature Above 100.4 Stop: 11/05/19 22:43 Al Hydrox/Mg Hydrox/Simethicone (Maalox) 30 ml PO Q4HR PRN PRN Reason: GI DISTRESS Stop: 11/05/19 22:40 Last Admin: 09/08/19 08:35 Dose: 30 ml Aspirin (Ecotrin) 81 mg PO DAILY [facility] Stop: 11/07/19 08:59 Last Admin: 09/14/19 08:25 Dose: 81 mg Atorvastatin Calcium (Lipitor) 40 mg PO HS [facility] Stop: 11/06/19 20:59 Last Admin: 09/13/19 21:01 Dose: 40 mg Famotidine (Pepcid) 20 mg PO BID [facility] Stop: 11/07/19 08:59 Last Admin: 09/14/19 08:25 Dose: 20 mg Furosemide (Lasix) 80 mg PO DAILY [facility] Stop: 11/07/19 08:59 Last Admin: 09/14/19 08:25 Dose: 80 mg Ibuprofen (Motrin) 400 mg PO Q4H PRN PRN Reason: Pain (Severe 7-10) Stop: 11/05/19 22:40 Insulin Human Lispro (Humalog Insulin Sliding Scale) 0 units SUBQ ACHS [facility]; Protocol Stop: 11/06/19 20:59 Last Admin: 09/14/19 11:27 Dose: Not Given Lisinopril (Zestril) 5 mg PO DAILY [facility] Stop: 11/07/19 08:59 Last Admin: 09/14/19 08:28 Dose: Not Given Lorazepam (Ativan) 0.5 mg PO Q6HR PRN; Protocol PRN Reason: Anxiety Stop: 11/06/19 06:44 Last Admin: 09/08/19 13:20 Dose: 0.5 mg Magnesium Hydroxide (Milk Of Magnesia) 30 ml PO HS PRN PRN Reason: Constipation Metoprolol Succinate (Toprol Xl) 200 mg PO DAILY [facility] Stop: 11/07/19 08:59 Last Admin: 09/14/19 08:28 Dose: Not Given Mirtazapine (Remeron) 15 mg PO HS [facility]; Protocol Stop: 11/06/19 20:59 Last Admin: 09/13/19 21:01 Dose: 15 mg Patient Own Med- Biktarvy ( Bictegravir/Emtricitabine/Tenofovir) 1 PO DAILY [facility] Stop: 11/08/19 08:59 Last Admin: 09/14/19 08:28 Dose: Not Given Potassium Chloride (Klor-Con) 20 meq PO DAILY [facility] Stop: 11/07/19 08:59 Last Admin: 09/14/19 08:25 Dose: 20 meq Quetiapine Fumarate 300 mg/ (Quetiapine Fumarate 50 mg) 350 mg PO BID [facility] Stop: 11/13/19 08:59 Last Admin: 09/14/19 09:44 Dose: 350 mg Rivaroxaban (Xarelto) 20 mg PO HS [facility] Stop: 11/06/19 20:59 Last Admin: 09/13/19 21:01 Dose: 20 mg General: weak HEENT: NC/AT, PERRLA Neck: Supple Lungs: CTAB Cardiovascular: RRR, Normal S1, Normal S2 Abdomen: soft Extremities: clear Neurological: no change Internal Medicine Assmt/Plan - Assessment Assessment: 1. HIV 2. COPD 3. CHF 4. A.fib - Plan Plan: continue xarelto 20 mg po daily risks and benefits of anticoagulation explained no evidence of bleeding continue HIV meds d/w r.n. reviewed complete medical records Nutritional Asmnt/Malnutr-PDOC - Dietary Evaluation Malnutrition Findings (Please click <Entered> for more info): Nutritional Asmnt/Malnutrition Start: 09/09/19 13: 07 Text: Status: Complete Freq: Protocol: Document 09/09/19 13:07 ANA ROSA (Rec: 09/09/19 13:13 ANA ROSA MICHEL-CTXTS -[id number]) Nutritional Asmnt/Malnutrition Patient General Information Nutritional Screening Moderate Risk Diagnosis Suicidal Ideations Pertinent Medical Hx/Surgical Hx HIV, COPD, AFib, HTN, Heart Failure, Hx Stroke Subjective Information Pt is a 64-year-old male admitted on 09/05 d/t DTS and GD. Pt is eating an estimated 100% of meals since admit date (x2 days) Per Meal/Nutrition Activity Record. Dietary is currently providing an estimated 2100 kcals and 100 gm Pro to meet 100% kcal and 100+% Pro needs. Anthropometrics HT: 59 WT: 173 LB (78.64 kg) BMI: 25.54 (normal) GI/ Skin Integrity GI: WNL, Soft, Non-tender BM: 09/07 x1 I/O: 1320/Not Noted Skin: WNL, Intact [place]: 17 Diet Order: Cardiac Estimated Energy Needs: ( Geriatric, CBW) 5930-1109 kcals (25-30 kcals/ kg) 80-95g Pro (1.0-1.2 g/kg) 0007-4242 ml (25-30 ml/kg) Pertinent Medications Maalox (PRN), Lipitor, Pepcid, Lasix, INS-SS, MOM (PRN), Klor-Con Pertinent Labs POC Glucose (last 24 hours): 101, 165, 118, 84 09/06: HDL 35, Urine Protein Trace Nutritional Hx/Data Height 1.75 m Height (Calculated Centimeters) 175.3 Current Weight (lbs) 78.471 kg Weight (Calculated Kilograms) 78.5 Weight (Calculated Grams) 79578.5 [place] Body Weight 160 LB (72.73 kg) % [place] Body Weight 108 Body Mass Index (BMI) 25.5 Weight Status Approriate GI Symptoms GI Symptoms None Last BM 09/07 x1 Skin Integrity/Comment: Skin: WNL, Intact [place]: 17 Current %PO Good (75-100%) Estimated Nutritional Goals BEE in Kcals: Using Current wt Calories/Kcals/Kg 25-30 Kcals Calculated 5849-2912 Protein: Using Current wt Protein g/k.0-1.2 Protein Calculated 80-95 Fluid: ml 2919-1290 ml (25-30 ml/kg) Nutritional Problem 1. Problem Problem Altered nutrition related labs Etiology r/t pathophysiological causes Signs/Symptoms: aeb POC Glucose (last 24 hours ): 101, 165, 118, 84. Malnutrition Related to Morbid Obesity Malnutrition related to morbid obesity No Intervention/Recommendation Comments Continue Cardiac diet as tolerated. Expected Outcomes/Goals Expected Outcomes/Goals 1.PO intake to continue to meet >75% of estimated nutritional needs. 2.Monitor PO intake, wt, nutrition related labs to trend WNL, and skin integrity. 3.F/U as low risk in 7-10 days , 09/15-09/18.
[2019-09-14 18:10] LABS: HEMATOCRIT 37.9 % (36-54); HEMOGLOBIN 11.8 g/dL (14.0-18.0); MEAN CORPUSCULAR VOLUME 81 fL (79.0-98.0); RED BLOOD COUNT 4.68 MIL/uL (4.2-6.2); WHITE BLOOD COUNT 3.3 K/uL (4.8-10.8)
[2019-09-14 18:12] LABS: MEAN CORPUSCULAR HEMOGLOBIN 25 pg (27-31)
[2019-09-14 18:13] LABS: MEAN CORPUSCULAR HGB CONC 31 % (32-36); PLATELET COUNT 381 K/uL (130-430); RED CELL DISTRIBUTION WIDTH 19.7 % (9.0-15.0)
[2019-09-14 18:14] LABS: % NEUTROPHILS 47.5 % (40-70); BASOPHILS % (AUTO) 1.4 % (0.0-2.0); EOSINOPHILS % (AUTO) 4.8 % (0-4); LYMPHOCYTES % (AUTO) 32.3 % (20.5-51.5); NEUTROPHILS # (AUTO) 1.6 K/uL (1.8-7.7)
[2019-09-14 18:15] LABS: EOSINOPHILS # (AUTO) 0.2 K/uL (0.0-0.4); LYMPHOCYTES # (AUTO) 1.1 K/uL (1.0-5.5); MONOCYTES # (AUTO) 0.5 K/uL (0.0-1.0)
[2019-09-14 18:20] LABS: CREATININE - SERUM 1.29 mg/dL (0.70-1.30); POTASSIUM SERUM 4.2 mmol/L (3.5-5.1)
[2019-09-14 18:21] LABS: BILIRUBIN,TOTAL 0.5 mg/dL (0.0-1.0); CALCIUM SERUM 9.1 mg/dL (8.4-10.2); TOTAL PROTEIN,SERUM 7.4 g/dL (6.4-8.3)
[2019-09-15] MEDS: INSULIN LISPRO SLIDING SCALE 100 UNITS/ML UNIT SUBQ SCH ×4 (06:42→20:49)
[2019-09-15] MEDS: BIKTARVY PO SCH (08:02)
[2019-09-15] MEDS: Potassium Chloride 20 mEq ER Tab PO SCH (09:30)
--- NOTE | 2019-09-15 19:33 | Internal Medicine Prog Note ---
Internal Medicine Subjective - Subjective Service Date: 09/15/19 Patient seen and examined:: without staff Patient is:: awake Per staff patient has:: no adverse event, no episodes of fall Internal Medicine Objective - Results Result Diagrams: 09/14/19 15:20 09/14/19 15:20 Recent Labs: Laboratory Last Values WBC 3.3 K/uL (4.8-10.8) L 09/14/19 15:20 RBC 4.68 MIL/uL (4.2-6.2) 09/14/19 15:20 Hgb 11.8 g/dL (14.0-18.0) L 09/14/19 15:20 Hct 37.9 % (36-54) 09/14/19 15:20 MCV 81 fL (79.0-98.0) 09/14/19 15:20 MCH 25 pg (27-31) L 09/14/19 15:20 MCHC 31 % (32-36) L 09/14/19 15:20 RDW 19.7 % (9.0-15.0) H 09/14/19 15:20 Plt Count 381 K/uL (130-430) 09/14/19 15:20 MPV 8.1 fl (7.4-10.4) 09/14/19 15:20 Neut % (Auto) 47.5 % (40-70) 09/14/19 15:20 Lymph % (Auto) 32.3 % (20.5-51.5) 09/14/19 15:20 [facility] % (Auto) 14.0 % (1.7-9.3) H 09/14/19 15:20 Eos % (Auto) 4.8 % (0-4) H 09/14/19 15:20 Baso % (Auto) 1.4 % (0.0-2.0) 09/14/19 15:20 Neut # (Auto) 1.6 K/uL (1.8-7.7) L 09/14/19 15:20 Lymph # (Auto) 1.1 K/uL (1.0-5.5) 09/14/19 15:20 [facility] # (Auto) 0.5 K/uL (0.0-1.0) 09/14/19 15:20 Eos # (Auto) 0.2 K/uL (0.0-0.4) 09/14/19 15:20 Baso # (Auto) 0.0 K/uL (0.0-0.2) 09/14/19 15:20 Sodium 136 mmol/L (136-145) 09/14/19 15:20 Potassium 4.2 mmol/L (3.5-5.1) 09/14/19 15:20 Chloride 103 mmol/L (98-107) 09/14/19 15:20 Carbon Dioxide 24 mmol/L (23-29) 09/14/19 15:20 Anion Gap 13 (5-15) 09/14/19 15:20 BUN 33 mg/dL (8-21) H 09/14/19 15:20 Creatinine 1.29 mg/dL (0.70-1.30) 09/14/19 15:20 Glucose 118 mg/dL (70-99) H 09/14/19 15:20 POC Glucose 80 MG/DL (70 - 105) 09/15/19 11:54 Calcium 9.1 mg/dL (8.4-10.2) 09/14/19 15:20 Total Bilirubin 0.5 mg/dL (0.0-1.0) 09/14/19 15:20 AST 25 U/L (10-37) 09/14/19 15:20 ALT 28 U/L (12-78) 09/14/19 15:20 Alkaline Phosphatase 136 U/L (46-116) H 09/14/19 15:20 Total Protein 7.4 g/dL (6.4-8.3) 09/14/19 15:20 Albumin 2.8 g/dL (3.4-5.0) L 09/14/19 15:20 Triglycerides 86 mg/dL (30-150) 09/07/19 09:59 Cholesterol 130 mg/dL (<200) 09/07/19 09:59 LDL Cholesterol 87 mg/dL (0-129) 09/07/19 09:59 HDL Cholesterol 35 mg/dL (>45) L 09/07/19 09:59 Urine Color YELLOW (YELLOW) 09/06/19 22:00 Urine Clarity CLEAR (CLEAR) 09/06/19 22:00 Urine pH 5.5 (5.0-8.0) 09/06/19 22:00 Ur Specific [place] 1.020 (1.005-1.030) 09/06/19 22:00 Urine Protein TRACE (NEGATIVE) H 09/06/19 22:00 Urine Ketones NEGATIVE (NEGATIVE) 09/06/19 22:00 Urine Blood TRACE (NEGATIVE) H 09/06/19 22:00 Urine Nitrate NEGATIVE (NEGATIVE) 09/06/19 22:00 Urine Bilirubin NEGATIVE (NEGATIVE) 09/06/19 22:00 Urine Urobilinogen 2.0 (0.2-1.0) H 09/06/19 22:00 Ur Leukocyte Esterase NEGATIVE (NEGATIVE) 09/06/19 22:00 Urine Glucose NEGATIVE (NEGATIVE) 09/06/19 22:00 Coronavirus (PCR) NOT DETECTED (NOT DETECTD) 09/14/19 15:43 - Physical Exam Vitals and I&O: Vital Signs Temp 97.5 F 09/15/19 14:00 Pulse 94 09/15/19 14:00 Resp 20 09/15/19 18:40 BP 99/70 09/15/19 14:00 Pulse Ox 98 09/15/19 14:00 Intake & Output 09/15/19 09/15/19 09/16/19 06:59 18:59 06:59 Intake Total 120 1400 Output Total 600 Balance 120 800 Intake: Oral 120 1400 Output: Urine 600 Other: # Voids 3 4 # Bowel Movements 1 Stool Characteristics Soft Brown Active Medications: Current Medications Acetaminophen (Tylenol) 650 mg PO Q4H PRN PRN Reason: Pain (Mild 1-3) Stop: 11/05/19 22:40 Acetaminophen (Tylenol Extra Strength) 1,000 mg PO Q6H PRN PRN Reason: Pain (Moderate 4-6) Stop: 11/05/19 22:40 Acetaminophen (Tylenol) 650 mg PO Q4H PRN PRN Reason: Temperature Above 100.4 Stop: 11/05/19 22:43 Al Hydrox/Mg Hydrox/Simethicone (Maalox) 30 ml PO Q4HR PRN PRN Reason: GI DISTRESS Stop: 11/05/19 22:40 Last Admin: 09/08/19 08:35 Dose: 30 ml Aspirin (Ecotrin) 81 mg PO DAILY [facility] Stop: 11/07/19 08:59 Last Admin: 09/15/19 09:26 Dose: 81 mg Atorvastatin Calcium (Lipitor) 40 mg PO HS [facility] Stop: 11/06/19 20:59 Last Admin: 09/14/19 21:13 Dose: 40 mg Famotidine (Pepcid) 20 mg PO BID [facility] Stop: 11/07/19 08:59 Last Admin: 09/15/19 17:08 Dose: 20 mg Furosemide (Lasix) 80 mg PO DAILY [facility] Stop: 11/07/19 08:59 Last Admin: 09/15/19 09:30 Dose: 80 mg Ibuprofen (Motrin) 400 mg PO Q4H PRN PRN Reason: Pain (Severe 7-10) Stop: 11/05/19 22:40 Insulin Human Lispro (Humalog Insulin Sliding Scale) 0 units SUBQ ACHS [facility]; Protocol Stop: 11/06/19 20:59 Last Admin: 09/15/19 17:07 Dose: Not Given Lisinopril (Zestril) 5 mg PO DAILY [facility] Stop: 11/07/19 08:59 Last Admin: 09/15/19 09:24 Dose: Not Given Lorazepam (Ativan) 0.5 mg PO Q6HR PRN; Protocol PRN Reason: Anxiety Stop: 11/06/19 06:44 Last Admin: 09/08/19 13:20 Dose: 0.5 mg Magnesium Hydroxide (Milk Of Magnesia) 30 ml PO HS PRN PRN Reason: Constipation Metoprolol Succinate (Toprol Xl) 200 mg PO DAILY [facility] Stop: 11/07/19 08:59 Last Admin: 09/15/19 09:25 Dose: Not Given Mirtazapine (Remeron) 15 mg PO HS [facility]; Protocol Stop: 11/06/19 20:59 Last Admin: 09/14/19 21:13 Dose: 15 mg Patient Own Med- Biktarvy ( Bictegravir/Emtricitabine/Tenofovir) 1 PO DAILY [facility] Stop: 11/08/19 08:59 Last Admin: 09/15/19 08:02 Dose: Not Given Potassium Chloride (Klor-Con) 20 meq PO DAILY [facility] Stop: 11/07/19 08:59 Last Admin: 09/15/19 09:30 Dose: 20 meq Quetiapine Fumarate 300 mg/ (Quetiapine Fumarate 50 mg) 350 mg PO BID [facility] Stop: 11/13/19 08:59 Last Admin: 09/15/19 17:08 Dose: 350 mg Rivaroxaban (Xarelto) 20 mg PO HS [facility] Stop: 11/06/19 20:59 Last Admin: 09/14/19 21:13 Dose: 20 mg General: weak HEENT: NC/AT, PERRLA Neck: Supple Lungs: CTAB Cardiovascular: RRR, Normal S1, Normal S2 Abdomen: soft Extremities: clear Neurological: no change Internal Medicine Assmt/Plan - Assessment Assessment: 1. HIV 2. COPD 3. CHF 4. A.fib - Plan Plan: continue xarelto 20 mg po daily risks and benefits of anticoagulation explained no evidence of bleeding continue HIV meds d/w r.n. reviewed complete medical records Nutritional Asmnt/Malnutr-PDOC - Dietary Evaluation Malnutrition Findings (Please click <Entered> for more info): Nutritional Asmnt/Malnutrition Start: 09/09/19 13: 07 Text: Status: Complete Freq: Protocol: Document 09/09/19 13:07 ANA ROSA (Rec: 09/09/19 13:13 ANA ROSA [id number] -[id number]) Nutritional Asmnt/Malnutrition Patient General Information Nutritional Screening Moderate Risk Diagnosis Suicidal Ideations Pertinent Medical Hx/Surgical Hx HIV, COPD, AFib, HTN, Heart Failure, Hx Stroke Subjective Information Pt is a 64-year-old male admitted on 09/05 d/t DTS and GD. Pt is eating an estimated 100% of meals since admit date (x2 days) Per Meal/Nutrition Activity Record. Dietary is currently providing an estimated 2100 kcals and 100 gm Pro to meet 100% kcal and 100+% Pro needs. Anthropometrics HT: 59 WT: 173 LB (78.64 kg) BMI: 25.54 (normal) GI/ Skin Integrity GI: WNL, Soft, Non-tender BM: 09/07 x1 I/O: 1320/Not Noted Skin: WNL, Intact [place]: 17 Diet Order: Cardiac Estimated Energy Needs: ( Geriatric, CBW) 5643-2814 kcals (25-30 kcals/ kg) 80-95g Pro (1.0-1.2 g/kg) 3180-2356 ml (25-30 ml/kg) Pertinent Medications Maalox (PRN), Lipitor, Pepcid, Lasix, INS-SS, MOM (PRN), Klor-Con Pertinent Labs POC Glucose (last 24 hours): 101, 165, 118, 84 09/06: HDL 35, Urine Protein Trace Nutritional Hx/Data Height 1.75 m Height (Calculated Centimeters) 175.3 Current Weight (lbs) 78.471 kg Weight (Calculated Kilograms) 78.5 Weight (Calculated Grams) 09348.5 [place] Body Weight 160 LB (72.73 kg) % [place] Body Weight 108 Body Mass Index (BMI) 25.5 Weight Status Approriate GI Symptoms GI Symptoms None Last BM 09/07 x1 Skin Integrity/Comment: Skin: WNL, Intact Osbaldo: 17 Current %PO Good (75-100%) Estimated Nutritional Goals BEE in Kcals: Using Current wt Calories/Kcals/Kg 25-30 Kcals Calculated 3478-6629 Protein: Using Current wt Protein g/k.0-1.2 Protein Calculated 80-95 Fluid: ml 5905-9284 ml (25-30 ml/kg) Nutritional Problem 1. Problem Problem Altered nutrition related labs Etiology r/t pathophysiological causes Signs/Symptoms: aeb POC Glucose (last 24 hours ): 101, 165, 118, 84. Malnutrition Related to Morbid Obesity Malnutrition related to morbid obesity No Intervention/Recommendation Comments Continue Cardiac diet as tolerated. Expected Outcomes/Goals Expected Outcomes/Goals 1.PO intake to continue to meet >75% of estimated nutritional needs. 2.Monitor PO intake, wt, nutrition related labs to trend WNL, and skin integrity. 3.F/U as low risk in 7-10 days , 09/15-09/18.
--- NOTE | 2019-09-15 20:38 | Progress Notes ---
DATE: 09/15/2019 Case was discussed with staff of the patient, reviewed records. The patient reports he continues to hear voices at times. the voices sometimes tell him to harm himself. He is sleeping well and eating well. No side effects with the medication, no sedation, no nausea, no extrapyramidal symptoms. The patient is on wheelchair. The patient is out of the room, able to engage more appropriately. No side effects with the medication, no sedation, no nausea and no extrapyramidal symptoms and tolerating increase in Lexapro. We will continue to work with the patient in group therapy, milieu therapy, and adjust the medications as needed. JOB# [id number] RAMIRO
[2019-09-16] MEDS: INSULIN LISPRO SLIDING SCALE 100 UNITS/ML UNIT SUBQ SCH ×4 (06:35→20:05)
[2019-09-16] MEDS: Potassium Chloride 20 mEq ER Tab PO SCH (09:22)
[2019-09-16] MEDS: BIKTARVY PO SCH (09:23)
--- NOTE | 2019-09-16 15:45 | Internal Medicine Prog Note ---
Internal Medicine Subjective - Subjective Service Date: 09/16/19 Patient seen and examined:: without staff Patient is:: awake Per staff patient has:: no adverse event, no episodes of fall Internal Medicine Objective - Results Result Diagrams: 09/14/19 15:20 09/14/19 15:20 Recent Labs: Laboratory Last Values WBC 3.3 K/uL (4.8-10.8) L 09/14/19 15:20 RBC 4.68 MIL/uL (4.2-6.2) 09/14/19 15:20 Hgb 11.8 g/dL (14.0-18.0) L 09/14/19 15:20 Hct 37.9 % (36-54) 09/14/19 15:20 MCV 81 fL (79.0-98.0) 09/14/19 15:20 MCH 25 pg (27-31) L 09/14/19 15:20 MCHC 31 % (32-36) L 09/14/19 15:20 RDW 19.7 % (9.0-15.0) H 09/14/19 15:20 Plt Count 381 K/uL (130-430) 09/14/19 15:20 MPV 8.1 fl (7.4-10.4) 09/14/19 15:20 Neut % (Auto) 47.5 % (40-70) 09/14/19 15:20 Lymph % (Auto) 32.3 % (20.5-51.5) 09/14/19 15:20 [place] % (Auto) 14.0 % (1.7-9.3) H 09/14/19 15:20 Eos % (Auto) 4.8 % (0-4) H 09/14/19 15:20 Baso % (Auto) 1.4 % (0.0-2.0) 09/14/19 15:20 Neut # (Auto) 1.6 K/uL (1.8-7.7) L 09/14/19 15:20 Lymph # (Auto) 1.1 K/uL (1.0-5.5) 09/14/19 15:20 [place] # (Auto) 0.5 K/uL (0.0-1.0) 09/14/19 15:20 Eos # (Auto) 0.2 K/uL (0.0-0.4) 09/14/19 15:20 Baso # (Auto) 0.0 K/uL (0.0-0.2) 09/14/19 15:20 Sodium 136 mmol/L (136-145) 09/14/19 15:20 Potassium 4.2 mmol/L (3.5-5.1) 09/14/19 15:20 Chloride 103 mmol/L (98-107) 09/14/19 15:20 Carbon Dioxide 24 mmol/L (23-29) 09/14/19 15:20 Anion Gap 13 (5-15) 09/14/19 15:20 BUN 33 mg/dL (8-21) H 09/14/19 15:20 Creatinine 1.29 mg/dL (0.70-1.30) 09/14/19 15:20 Glucose 118 mg/dL (70-99) H 09/14/19 15:20 POC Glucose 123 MG/DL (70 - 105) H 09/16/19 11:02 Calcium 9.1 mg/dL (8.4-10.2) 09/14/19 15:20 Total Bilirubin 0.5 mg/dL (0.0-1.0) 09/14/19 15:20 AST 25 U/L (10-37) 09/14/19 15:20 ALT 28 U/L (12-78) 09/14/19 15:20 Alkaline Phosphatase 136 U/L (46-116) H 09/14/19 15:20 Total Protein 7.4 g/dL (6.4-8.3) 09/14/19 15:20 Albumin 2.8 g/dL (3.4-5.0) L 09/14/19 15:20 Triglycerides 86 mg/dL (30-150) 09/07/19 09:59 Cholesterol 130 mg/dL (<200) 09/07/19 09:59 LDL Cholesterol 87 mg/dL (0-129) 09/07/19 09:59 HDL Cholesterol 35 mg/dL (>45) L 09/07/19 09:59 Urine Color YELLOW (YELLOW) 09/06/19 22:00 Urine Clarity CLEAR (CLEAR) 09/06/19 22:00 Urine pH 5.5 (5.0-8.0) 09/06/19 22:00 Ur Specific [place] 1.020 (1.005-1.030) 09/06/19 22:00 Urine Protein TRACE (NEGATIVE) H 09/06/19 22:00 Urine Ketones NEGATIVE (NEGATIVE) 09/06/19 22:00 Urine Blood TRACE (NEGATIVE) H 09/06/19 22:00 Urine Nitrate NEGATIVE (NEGATIVE) 09/06/19 22:00 Urine Bilirubin NEGATIVE (NEGATIVE) 09/06/19 22:00 Urine Urobilinogen 2.0 (0.2-1.0) H 09/06/19 22:00 Ur Leukocyte Esterase NEGATIVE (NEGATIVE) 09/06/19 22:00 Urine Glucose NEGATIVE (NEGATIVE) 09/06/19 22:00 Coronavirus (PCR) NOT DETECTED (NOT DETECTD) 09/14/19 15:43 - Physical Exam Vitals and I&O: Vital Signs Temp 97.3 F 09/16/19 15:02 Pulse 65 09/16/19 15:02 Resp 20 09/16/19 15:02 BP 105/59 09/16/19 15:02 Pulse Ox 96 09/16/19 15:02 Intake & Output 09/15/19 09/16/19 09/16/19 18:59 06:59 18:59 Intake Total 1400 Output Total 600 Balance 800 Intake: Oral 1400 Output: Urine 600 Other: # Voids 4 # Bowel Movements 1 Stool Characteristics Soft Brown Active Medications: Current Medications Acetaminophen (Tylenol) 650 mg PO Q4H PRN PRN Reason: Pain (Mild 1-3) Stop: 11/05/19 22:40 Acetaminophen (Tylenol Extra Strength) 1,000 mg PO Q6H PRN PRN Reason: Pain (Moderate 4-6) Stop: 11/05/19 22:40 Acetaminophen (Tylenol) 650 mg PO Q4H PRN PRN Reason: Temperature Above 100.4 Stop: 11/05/19 22:43 Al Hydrox/Mg Hydrox/Simethicone (Maalox) 30 ml PO Q4HR PRN PRN Reason: GI DISTRESS Stop: 11/05/19 22:40 Last Admin: 09/08/19 08:35 Dose: 30 ml Aspirin (Ecotrin) 81 mg PO DAILY [facility] Stop: 11/07/19 08:59 Last Admin: 09/16/19 09:22 Dose: 81 mg Atorvastatin Calcium (Lipitor) 40 mg PO HS [facility] Stop: 11/06/19 20:59 Last Admin: 09/15/19 21:16 Dose: 40 mg Famotidine (Pepcid) 20 mg PO BID [facility] Stop: 11/07/19 08:59 Last Admin: 09/16/19 09:22 Dose: 20 mg Furosemide (Lasix) 80 mg PO DAILY [facility] Stop: 11/07/19 08:59 Last Admin: 09/16/19 09:22 Dose: 80 mg Ibuprofen (Motrin) 400 mg PO Q4H PRN PRN Reason: Pain (Severe 7-10) Stop: 11/05/19 22:40 Insulin Human Lispro (Humalog Insulin Sliding Scale) 0 units SUBQ ACHS [facility]; Protocol Stop: 11/06/19 20:59 Last Admin: 09/16/19 11:04 Dose: Not Given Lisinopril (Zestril) 5 mg PO DAILY [facility] Stop: 11/07/19 08:59 Last Admin: 09/16/19 09:23 Dose: 5 mg Lorazepam (Ativan) 0.5 mg PO Q6HR PRN; Protocol PRN Reason: Anxiety Stop: 11/06/19 06:44 Last Admin: 09/15/19 21:28 Dose: 0.5 mg Magnesium Hydroxide (Milk Of Magnesia) 30 ml PO HS PRN PRN Reason: Constipation Metoprolol Succinate (Toprol Xl) 200 mg PO DAILY [facility] Stop: 11/07/19 08:59 Last Admin: 09/16/19 09:23 Dose: 200 mg Mirtazapine (Remeron) 15 mg PO HS [facility]; Protocol Stop: 11/06/19 20:59 Last Admin: 09/15/19 21:17 Dose: 15 mg Patient Own Med- Biktarvy ( Bictegravir/Emtricitabine/Tenofovir) 1 PO DAILY [facility] Stop: 11/08/19 08:59 Last Admin: 09/16/19 09:23 Dose: Not Given Potassium Chloride (Klor-Con) 20 meq PO DAILY [facility] Stop: 11/07/19 08:59 Last Admin: 09/16/19 09:22 Dose: 20 meq Quetiapine Fumarate (Seroquel) 400 mg PO BID [facility] Stop: 11/15/19 16:59 Rivaroxaban (Xarelto) 20 mg PO HS [facility] Stop: 11/06/19 20:59 Last Admin: 09/15/19 21:17 Dose: 20 mg General: weak HEENT: NC/AT, PERRLA Neck: Supple Lungs: CTAB Cardiovascular: RRR, Normal S1, Normal S2 Abdomen: soft Extremities: clear Neurological: no change Internal Medicine Assmt/Plan - Assessment Assessment: 1. HIV 2. COPD 3. CHF 4. A.fib - Plan Plan: continue xarelto 20 mg po daily risks and benefits of anticoagulation explained no evidence of bleeding continue HIV meds d/w r.n. reviewed complete medical records Nutritional Asmnt/Malnutr-PDOC - Dietary Evaluation Malnutrition Findings (Please click <Entered> for more info): Nutritional Asmnt/Malnutrition Start: 09/09/19 13: 07 Text: Status: Complete Freq: Protocol: Document 09/09/19 13:07 ANA ROSA (Rec: 09/09/19 13:13 ANA ROSA MICHEL-CTXTS -[id number]) Nutritional Asmnt/Malnutrition Patient General Information Nutritional Screening Moderate Risk Diagnosis Suicidal Ideations Pertinent Medical Hx/Surgical Hx HIV, COPD, AFib, HTN, Heart Failure, Hx Stroke Subjective Information Pt is a 64-year-old male admitted on 09/05 d/t DTS and GD. Pt is eating an estimated 100% of meals since admit date (x2 days) Per Meal/Nutrition Activity Record. Dietary is currently providing an estimated 2100 kcals and 100 gm Pro to meet 100% kcal and 100+% Pro needs. Anthropometrics HT: 59 WT: 173 LB (78.64 kg) BMI: 25.54 (normal) GI/ Skin Integrity GI: WNL, Soft, Non-tender BM: 09/07 x1 I/O: 1320/Not Noted Skin: WNL, Intact Osbaldo: 17 Diet Order: Cardiac Estimated Energy Needs: ( Geriatric, CBW) 9372-0266 kcals (25-30 kcals/ kg) 80-95g Pro (1.0-1.2 g/kg) 0151-6575 ml (25-30 ml/kg) Pertinent Medications Maalox (PRN), Lipitor, Pepcid, Lasix, INS-SS, MOM (PRN), Klor-Con Pertinent Labs POC Glucose (last 24 hours): 101, 165, 118, 84 09/06: HDL 35, Urine Protein Trace Nutritional Hx/Data Height 1.75 m Height (Calculated Centimeters) 175.3 Current Weight (lbs) 78.471 kg Weight (Calculated Kilograms) 78.5 Weight (Calculated Grams) 83559.5 [place] Body Weight 160 LB (72.73 kg) % [place] Body Weight 108 Body Mass Index (BMI) 25.5 Weight Status Approriate GI Symptoms GI Symptoms None Last BM 09/07 x1 Skin Integrity/Comment: Skin: WNL, Intact [place]: 17 Current %PO Good (75-100%) Estimated Nutritional Goals BEE in Kcals: Using Current wt Calories/Kcals/Kg 25-30 Kcals Calculated 6690-5665 Protein: Using Current wt Protein g/k.0-1.2 Protein Calculated 80-95 Fluid: ml 7036-7157 ml (25-30 ml/kg) Nutritional Problem 1. Problem Problem Altered nutrition related labs Etiology r/t pathophysiological causes Signs/Symptoms: aeb POC Glucose (last 24 hours ): 101, 165, 118, 84. Malnutrition Related to Morbid Obesity Malnutrition related to morbid obesity No Intervention/Recommendation Comments Continue Cardiac diet as tolerated. Expected Outcomes/Goals Expected Outcomes/Goals 1.PO intake to continue to meet >75% of estimated nutritional needs. 2.Monitor PO intake, wt, nutrition related labs to trend WNL, and skin integrity. 3.F/U as low risk in 7-10 days , 09/15-09/18.
--- NOTE | 2019-09-16 21:09 | Progress Notes ---
DATE: 09/16/2019 Case was discussed with staff of the patient, reviewed records. He reports he is still hearing voices. He is not sleeping well. He would like his medication to be adjusted. He continues to have thoughts of wanting to harm himself. He continues to be unpredictable, impulsive, continues to be not ready to go to a lesser level of care. I will be increasing his Seroquel. Seroquel will be increased to 400 mg twice a day. No side effects with the medication, no sedation, no nausea, no extrapyramidal symptoms. We will continue outpatient group therapy, milieu therapy, adjust medication as needed. JOB# [id number]
[2019-09-17] MEDS: INSULIN LISPRO SLIDING SCALE 100 UNITS/ML UNIT SUBQ SCH ×4 (06:37→20:01)
--- NOTE | 2019-09-17 07:06 | Progress Notes ---
DATE: 09/17/2019 SUBJECTIVE: A 64-year-old male, currently in the hospital, noted to be calmer right now. Poor sleep. The patient admitted to [facility], cocaine use, depressed, suicidal, tried to strangle himself in the past, the voices telling him to harm himself or burn himself, increasing voices and multiple hospitalizations. The patient is still down, depressed, ongoing voices, perceptual disturbances, taking Remeron 15 at bedtime, Seroquel as well. Still reported by staff to not be sleeping, which is somewhat surprising given how much medication he is on, but is quite sedating in nature. The patient with ongoing suicidal thoughts and feeling desperate having a hard time with sleep. ASSESSMENT: The patient is symptomatic, ongoing suicidal thoughts, voices concerns for safety that he may harm himself. PLAN: We will transition medications for sleep. We will continue inpatient monitoring. [facility]# [id number]
[2019-09-17] MEDS: Potassium Chloride 20 mEq ER Tab PO SCH (08:15)
[2019-09-17] MEDS: BIKTARVY PO SCH (08:21)
[2019-09-18] MEDS: INSULIN LISPRO SLIDING SCALE 100 UNITS/ML UNIT SUBQ SCH ×4 (06:30→21:03)
--- NOTE | 2019-09-18 07:06 | Progress Notes ---
DATE: 09/18/2019 SUBJECTIVE: The patient is currently in the hospital, generally calm right now. Apparently tried to strangle himself in the past. 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 He may need adjunctive treatment with Haldol for example given that the voices are still there, perhaps Depakote. Calm right now, comfortable, just distressed by the voices. ASSESSMENT: A 64-year-old male with ongoing voices, command voices telling him to harm himself. Concerns for safety. Time was spent with the patient talking about the voices. Continue dosing of Seroquel for now. If no improvement, recommend a small dose of Haldol. JOB# [id number]
[2019-09-18] MEDS: Potassium Chloride 20 mEq ER Tab PO SCH (09:25)
[2019-09-18] MEDS: BIKTARVY PO SCH (09:26)
[2019-09-19] MEDS: INSULIN LISPRO SLIDING SCALE 100 UNITS/ML UNIT SUBQ SCH ×4 (06:35→21:35)
[2019-09-19] MEDS: Potassium Chloride 20 mEq ER Tab PO SCH (09:02)
[2019-09-19] MEDS: BIKTARVY PO SCH (09:13)
--- NOTE | 2019-09-19 20:25 | Progress Notes ---
DATE: 09/19/2019 Case was discussed with staff of the patient, reviewed records. The patient reported that the voices are not as prominent. However, he is still hearing them. He reported that he will contract for safety. He will not harm himself. Dr. Casanova added doxepin over the weekend 25 mg at bedtime. I will be adding Haldol to his medication to help with the voices as he reports he is still hearing them, though they are improving, but he is not doing very well with it. No side effects with the medication, no sedation, no nausea, no extrapyramidal symptoms. Discussed side effects. We will continue outpatient group therapy, milieu therapy, adjust the medications as needed. JOB# [id number]
[2019-09-20] MEDS: INSULIN LISPRO SLIDING SCALE 100 UNITS/ML UNIT SUBQ SCH ×4 (06:34→21:03)
[2019-09-20 08:25] LABS: A1C 6.2 % (4.8-5.6)
[2019-09-20] MEDS: Potassium Chloride 20 mEq ER Tab PO SCH (08:41)
[2019-09-20] MEDS: BIKTARVY PO SCH ×2 (09:10→16:49)
--- NOTE | 2019-09-20 12:32 | Progress Notes ---
DATE: 09/20/2019 Case was discussed with staff of the patient, reviewed records. The patient continues to report hearing voices. Continues to report the voices tell him to harm himself, but he said he would not harm himself. He is sleeping well, eating well. He is not acting anyway dangerous since he has been here. I will be initiating him on Depakote 500 mg twice a day. Discussed. No side effects with the medication, no sedation, no nausea, no extrapyramidal symptoms. We will continue outpatient group therapy, milieu therapy, adjust medication as needed. JOB# [id number]
[2019-09-21] MEDS: INSULIN LISPRO SLIDING SCALE 100 UNITS/ML UNIT SUBQ SCH (06:33)
[2019-09-21] MEDS: Potassium Chloride 20 mEq ER Tab PO SCH (08:24)
[2019-09-21] MEDS: BIKTARVY PO SCH (08:48)
--- NOTE | 2019-09-21 13:25 | Internal Medicine Prog Note ---
Internal Medicine Subjective - Subjective Service Date: 09/21/19 Patient seen and examined:: without staff Patient is:: awake Per staff patient has:: no adverse event, no episodes of fall Internal Medicine Objective - Results Result Diagrams: 09/14/19 15:20 09/14/19 15:20 Recent Labs: Laboratory Last Values WBC 3.3 K/uL (4.8-10.8) L 09/14/19 15:20 RBC 4.68 MIL/uL (4.2-6.2) 09/14/19 15:20 Hgb 11.8 g/dL (14.0-18.0) L 09/14/19 15:20 Hct 37.9 % (36-54) 09/14/19 15:20 MCV 81 fL (79.0-98.0) 09/14/19 15:20 MCH 25 pg (27-31) L 09/14/19 15:20 MCHC 31 % (32-36) L 09/14/19 15:20 RDW 19.7 % (9.0-15.0) H 09/14/19 15:20 Plt Count 381 K/uL (130-430) 09/14/19 15:20 MPV 8.1 fl (7.4-10.4) 09/14/19 15:20 Neut % (Auto) 47.5 % (40-70) 09/14/19 15:20 Lymph % (Auto) 32.3 % (20.5-51.5) 09/14/19 15:20 [place] % (Auto) 14.0 % (1.7-9.3) H 09/14/19 15:20 Eos % (Auto) 4.8 % (0-4) H 09/14/19 15:20 Baso % (Auto) 1.4 % (0.0-2.0) 09/14/19 15:20 Neut # (Auto) 1.6 K/uL (1.8-7.7) L 09/14/19 15:20 Lymph # (Auto) 1.1 K/uL (1.0-5.5) 09/14/19 15:20 [place] # (Auto) 0.5 K/uL (0.0-1.0) 09/14/19 15:20 Eos # (Auto) 0.2 K/uL (0.0-0.4) 09/14/19 15:20 Baso # (Auto) 0.0 K/uL (0.0-0.2) 09/14/19 15:20 Sodium 136 mmol/L (136-145) 09/14/19 15:20 Potassium 4.2 mmol/L (3.5-5.1) 09/14/19 15:20 Chloride 103 mmol/L (98-107) 09/14/19 15:20 Carbon Dioxide 24 mmol/L (23-29) 09/14/19 15:20 Anion Gap 13 (5-15) 09/14/19 15:20 BUN 33 mg/dL (8-21) H 09/14/19 15:20 Creatinine 1.29 mg/dL (0.70-1.30) 09/14/19 15:20 Glucose 118 mg/dL (70-99) H 09/14/19 15:20 POC Glucose 72 MG/DL (70 - 105) 09/21/19 06:24 Calcium 9.1 mg/dL (8.4-10.2) 09/14/19 15:20 Total Bilirubin 0.5 mg/dL (0.0-1.0) 09/14/19 15:20 AST 25 U/L (10-37) 09/14/19 15:20 ALT 28 U/L (12-78) 09/14/19 15:20 Alkaline Phosphatase 136 U/L (46-116) H 09/14/19 15:20 Total Protein 7.4 g/dL (6.4-8.3) 09/14/19 15:20 Albumin 2.8 g/dL (3.4-5.0) L 09/14/19 15:20 Triglycerides 86 mg/dL (30-150) 09/07/19 09:59 Cholesterol 130 mg/dL (<200) 09/07/19 09:59 LDL Cholesterol 87 mg/dL (0-129) 09/07/19 09:59 HDL Cholesterol 35 mg/dL (>45) L 09/07/19 09:59 Urine Color YELLOW (YELLOW) 09/06/19 22:00 Urine Clarity CLEAR (CLEAR) 09/06/19 22:00 Urine pH 5.5 (5.0-8.0) 09/06/19 22:00 Ur Specific [place] 1.020 (1.005-1.030) 09/06/19 22:00 Urine Protein TRACE (NEGATIVE) H 09/06/19 22:00 Urine Ketones NEGATIVE (NEGATIVE) 09/06/19 22:00 Urine Blood TRACE (NEGATIVE) H 09/06/19 22:00 Urine Nitrate NEGATIVE (NEGATIVE) 09/06/19 22:00 Urine Bilirubin NEGATIVE (NEGATIVE) 09/06/19 22:00 Urine Urobilinogen 2.0 (0.2-1.0) H 09/06/19 22:00 Ur Leukocyte Esterase NEGATIVE (NEGATIVE) 09/06/19 22:00 Urine Glucose NEGATIVE (NEGATIVE) 09/06/19 22:00 Coronavirus (PCR) NOT DETECTED (NOT DETECTD) 09/14/19 15:43 - Physical Exam Vitals and I&O: Vital Signs Temp 96.7 F 09/21/19 05:39 Pulse 59 09/21/19 08:26 Resp 17 09/21/19 08:00 BP 103/63 09/21/19 08:26 Pulse Ox 97 09/21/19 05:39 Intake & Output 09/20/19 09/21/19 09/21/19 18:59 06:59 18:59 Intake Total 1200 120 Output Total 400 Balance 800 120 Intake: Oral 1200 120 Output: Urine 400 Other: # Voids 4 3 # Bowel Movements 0 Stool Characteristics Soft Formed Brown Active Medications: Current Medications Acetaminophen (Tylenol) 650 mg PO Q4H PRN PRN Reason: Pain (Mild 1-3) Stop: 11/05/19 22:40 Acetaminophen (Tylenol Extra Strength) 1,000 mg PO Q6H PRN PRN Reason: Pain (Moderate 4-6) Stop: 11/05/19 22:40 Acetaminophen (Tylenol) 650 mg PO Q4H PRN PRN Reason: Temperature Above 100.4 Stop: 11/05/19 22:43 Al Hydrox/Mg Hydrox/Simethicone (Maalox) 30 ml PO Q4HR PRN PRN Reason: GI DISTRESS Stop: 11/05/19 22:40 Last Admin: 09/08/19 08:35 Dose: 30 ml Aspirin (Ecotrin) 81 mg PO DAILY [facility] Stop: 11/07/19 08:59 Last Admin: 09/21/19 08:24 Dose: 81 mg Atorvastatin Calcium (Lipitor) 40 mg PO HS [facility] Stop: 11/06/19 20:59 Last Admin: 09/20/19 21:02 Dose: 40 mg Divalproex Sodium (Depakote Er) 500 mg PO BID [facility]; Protocol Stop: 11/19/19 16:59 Last Admin: 09/21/19 08:23 Dose: 500 mg Doxepin HCl (Sinequan) 25 mg PO HS [facility]; Protocol Stop: 11/16/19 20:59 Last Admin: 09/20/19 21:02 Dose: 25 mg Famotidine (Pepcid) 20 mg PO BID [facility] Stop: 11/07/19 08:59 Last Admin: 09/21/19 08:23 Dose: 20 mg Furosemide (Lasix) 80 mg PO DAILY [facility] Stop: 11/07/19 08:59 Last Admin: 09/21/19 08:25 Dose: Not Given Haloperidol (Haldol) 5 mg PO BID [facility]; Protocol Stop: 11/18/19 16:59 Last Admin: 09/21/19 08:24 Dose: 5 mg Ibuprofen (Motrin) 400 mg PO Q4H PRN PRN Reason: Pain (Severe 7-10) Stop: 11/05/19 22:40 Insulin Human Lispro (Humalog Insulin Sliding Scale) 0 units SUBQ QDAC [facility]; Protocol Stop: 11/21/19 07:29 Lisinopril (Zestril) 5 mg PO DAILY [facility] Stop: 11/07/19 08:59 Last Admin: 09/21/19 08:25 Dose: Not Given Lorazepam (Ativan) 0.5 mg PO Q6HR PRN; Protocol PRN Reason: Anxiety Stop: 11/06/19 06:44 Last Admin: 09/16/19 22:56 Dose: 0.5 mg Magnesium Hydroxide (Milk Of Magnesia) 30 ml PO HS PRN PRN Reason: Constipation Metoprolol Succinate (Toprol Xl) 200 mg PO DAILY [facility] Stop: 11/07/19 08:59 Last Admin: 09/21/19 08:26 Dose: Not Given Olanzapine (Zyprexa) 5 mg PO BID [facility]; Protocol Stop: 11/20/19 08:59 Last Admin: 09/21/19 09:52 Dose: 5 mg Patient Own Med- Biktarvy ( Bictegravir/Emtricitabine/Tenofovir) 1 PO DAILY [facility] Stop: 11/08/19 08:59 Last Admin: 09/21/19 08:48 Dose: 1 Potassium Chloride (Klor-Con) 20 meq PO DAILY [facility] Stop: 11/07/19 08:59 Last Admin: 09/21/19 08:24 Dose: 20 meq Rivaroxaban (Xarelto) 20 mg PO HS [facility] Stop: 11/06/19 20:59 Last Admin: 09/20/19 21:02 Dose: 20 mg General: weak HEENT: NC/AT, PERRLA Neck: Supple Lungs: CTAB Cardiovascular: RRR, Normal S1, Normal S2 Abdomen: soft Extremities: clear Neurological: no change Internal Medicine Assmt/Plan - Assessment Assessment: 1. HIV 2. COPD 3. CHF 4. A.fib - Plan Plan: continue xarelto 20 mg po daily no evidence of bleeding continue HIV meds d/w r.n. reviewed complete medical records Nutritional Asmnt/Malnutr-PDOC - Dietary Evaluation Malnutrition Findings (Please click <Entered> for more info): Nutritional Asmnt/Malnutrition Start: 09/09/19 13: 07 Text: Status: Complete Freq: Protocol: Document 09/09/19 13:07 ANA ROSA (Rec: 09/09/19 13:13 ANA ROSA MICHEL-CTXTS -[id number]) Nutritional Asmnt/Malnutrition Patient General Information Nutritional Screening Moderate Risk Diagnosis Suicidal Ideations Pertinent Medical Hx/Surgical Hx HIV, COPD, AFib, HTN, Heart Failure, Hx Stroke Subjective Information Pt is a 64-year-old male admitted on 09/05 d/t DTS and GD. Pt is eating an estimated 100% of meals since admit date (x2 days) Per Meal/Nutrition Activity Record. Dietary is currently providing an estimated 2100 kcals and 100 gm Pro to meet 100% kcal and 100+% Pro needs. Anthropometrics HT: 59 WT: 173 LB (78.64 kg) BMI: 25.54 (normal) GI/ Skin Integrity GI: WNL, Soft, Non-tender BM: 09/07 x1 I/O: 1320/Not Noted Skin: WNL, Intact Osbaldo: 17 Diet Order: Cardiac Estimated Energy Needs: ( Geriatric, CBW) 0622-3522 kcals (25-30 kcals/ kg) 80-95g Pro (1.0-1.2 g/kg) 7576-3041 ml (25-30 ml/kg) Pertinent Medications Maalox (PRN), Lipitor, Pepcid, Lasix, INS-SS, MOM (PRN), Klor-Con Pertinent Labs POC Glucose (last 24 hours): 101, 165, 118, 84 09/06: HDL 35, Urine Protein Trace Nutritional Hx/Data Height 1.75 m Height (Calculated Centimeters) 175.3 Current Weight (lbs) 78.471 kg Weight (Calculated Kilograms) 78.5 Weight (Calculated Grams) 39118.5 [place] Body Weight 160 LB (72.73 kg) % [place] Body Weight 108 Body Mass Index (BMI) 25.5 Weight Status Approriate GI Symptoms GI Symptoms None Last BM 09/07 x1 Skin Integrity/Comment: Skin: WNL, Intact Osbaldo: 17 Current %PO Good (75-100%) Estimated Nutritional Goals BEE in Kcals: Using Current wt Calories/Kcals/Kg 25-30 Kcals Calculated 6252-0429 Protein: Using Current wt Protein g/k.0-1.2 Protein Calculated 80-95 Fluid: ml 6417-9368 ml (25-30 ml/kg) Nutritional Problem 1. Problem Problem Altered nutrition related labs Etiology r/t pathophysiological causes Signs/Symptoms: aeb POC Glucose (last 24 hours ): 101, 165, 118, 84. Malnutrition Related to Morbid Obesity Malnutrition related to morbid obesity No Intervention/Recommendation Comments Continue Cardiac diet as tolerated. Expected Outcomes/Goals Expected Outcomes/Goals 1.PO intake to continue to meet >75% of estimated nutritional needs. 2.Monitor PO intake, wt, nutrition related labs to trend WNL, and skin integrity. 3.F/U as low risk in 7-10 days , 09/15-09/18.
--- NOTE | 2019-09-21 14:53 | Progress Notes ---
DATE: 09/21/2019 Case was discussed with staff of the patient, reviewed records. The patient continues to be psychotic, still hearing voices. Still the voices tell him different things, but he is willing to contract for safety. I added Depakote and also Haldol. Obviously, the Seroquel is not working despite increasing the dose. I will be discontinuing Seroquel, replaced it with Zyprexa. Keep him on the Haldol and increase the dose. Discussed side effects. We will continue outpatient group therapy, milieu therapy and adjust medications as needed. JOB# [id number]
[2019-09-22] MEDS: INSULIN LISPRO SLIDING SCALE 100 UNITS/ML UNIT SUBQ SCH (06:33)
[2019-09-22] MEDS: Potassium Chloride 20 mEq ER Tab PO SCH (08:21)
[2019-09-22] MEDS: BIKTARVY PO SCH (08:26)
--- NOTE | 2019-09-22 12:12 | Progress Notes ---
DATE: 09/22/2019 Case was discussed with staff of the patient, reviewed records. The patient reports he is still not sleeping well. He continues to hear voices. He can see that now with the new medication, the voices are starting to calm down a little bit. He is still not sleeping well. He has multiple somatic complaints. No side effects with the medication, no sedation, no nausea, no extrapyramidal symptoms. I will be increasing the Zyprexa to 2 mg twice a day to help improve his psychotic symptoms. Staff is also working on placement for this patient. He has been generally cooperative and he is willing to contract for safety. He is on a wheelchair, more visible on the unit and will continue outpatient group therapy, milieu therapy, adjust medication as needed. JOB# [id number]
[2019-09-23] MEDS: INSULIN LISPRO SLIDING SCALE 100 UNITS/ML UNIT SUBQ SCH (06:30)
[2019-09-23] MEDS: BIKTARVY PO SCH (08:14)
[2019-09-23] MEDS: Potassium Chloride 20 mEq ER Tab PO SCH (08:15)
--- NOTE | 2019-09-23 19:03 | Progress Notes ---
DATE: 09/23/2019 Case was discussed with staff of the patient, reviewed records. The patient reported the voices are fading away. He is happy with the current medications, sleeping well, and eating well. No suicidal ideation, no homicidal ideation, no paranoia, no side effects. He isolates himself in his room and we will continue outpatient group therapy, milieu therapy, and adjust medications as needed. [facility]# [id number]
[2019-09-24] MEDS: INSULIN LISPRO SLIDING SCALE 100 UNITS/ML UNIT SUBQ SCH (06:39)
[2019-09-24] MEDS: Potassium Chloride 20 mEq ER Tab PO SCH (08:28)
[2019-09-24] MEDS: BIKTARVY PO SCH (08:31)
--- NOTE | 2019-09-24 21:32 | Progress Notes ---
DATE: 09/24/2019 IDENTIFYING DATA: A 64-year-old male coming here from [facility] with a history of CVA on wheelchair, presented depressed, withdrawn, and poor appetite. CURRENT MEDICATIONS: Reconciliation reviewed includes Depakote, doxepin, Haldol 5 b.i.d., and Zyprexa 10 b.i.d. Today, he reports that his mood is improving, minimal to no voices improving. MENTAL STATUS EXAMINATION: Although isolative, less disengaged, no side effects. Minimal paranoia to none. ASSESSMENT AND PLAN: History of schizophrenia, stabilizing with the current medication regimen. We will continue with primary psychiatrist's treatment plan and goals. Continue working very closely with director of medical review for safe disposition. JOB# [id number]
[2019-09-25] MEDS: INSULIN LISPRO SLIDING SCALE 100 UNITS/ML UNIT SUBQ SCH (06:32)
[2019-09-25] MEDS: BIKTARVY PO SCH (08:49)
[2019-09-25] MEDS: Potassium Chloride 20 mEq ER Tab PO SCH (08:51)
--- NOTE | 2019-09-25 14:17 | Progress Notes ---
DATE: 09/25/[address] Zavala. Today on lxsk-zv-nlva evaluation, the patient reported he continues to feel ____ confusing. He reports "my brain is thick, weirdo stuff is going on." MENTAL STATUS EXAMINATION: Disorganized thought process, suspicious, internally preoccupied. ASSESSMENT AND PLAN: Schizophrenia, tolerating a dual antipsychotic that continues to stiff the patient's voices which are ____. JOB# [id number]
[2019-09-26] MEDS: INSULIN LISPRO SLIDING SCALE 100 UNITS/ML UNIT SUBQ SCH (06:39)
[2019-09-26] MEDS: Potassium Chloride 20 mEq ER Tab PO SCH (08:47)
[2019-09-26] MEDS: BIKTARVY PO SCH (08:51)
--- NOTE | 2019-09-26 11:10 | Progress Notes ---
DATE: 09/26/2019 Case was discussed with staff of the patient, reviewed records. The patient has been isolating himself. Continues to be at times delusional, disorganized thought process, internally preoccupied, but in general, he is showing progress. He is sleeping better, eating better. He ____ like the new medication with no side effects, no sedation, no nausea, no extrapyramidal symptoms. I will be increasing his Zyprexa to 50 mg twice a day to help with his continuous psychotic symptoms, although he is showing progress. No side effects with the medication, no sedation, no nausea, no extrapyramidal symptoms. We will continue outpatient group therapy, milieu therapy, adjust the medication as needed. JOB# [id number]
[2019-09-27] MEDS: INSULIN LISPRO SLIDING SCALE 100 UNITS/ML UNIT SUBQ SCH (06:49)
[2019-09-27] MEDS: BIKTARVY PO SCH (08:46)
[2019-09-27] MEDS: Potassium Chloride 20 mEq ER Tab PO SCH (08:50)
--- NOTE | 2019-09-27 21:20 | Progress Notes ---
DATE: 09/27/2019 Case was discussed with staff of the records. The patient is really showing progress. He is able to smile. He reported the voices are fading away. He is sleeping better, eating better. No side effects with the medication, no sedation, no nausea, no extrapyramidal symptoms. He is on olanzapine 15 mg twice a day, Haldol 5 mg twice a day, doxepin 25 mg at bedtime, Depakote 500 mg twice a day, working on discharge plan. We will continue outpatient group therapy, milieu therapy, adjust medication as needed. JOB# [id number]
[2019-09-28] MEDS: INSULIN LISPRO SLIDING SCALE 100 UNITS/ML UNIT SUBQ SCH (06:49)
[2019-09-28] MEDS: Potassium Chloride 20 mEq ER Tab PO SCH (08:33)
[2019-09-28] MEDS: BIKTARVY PO SCH (08:34)
--- NOTE | 2019-09-28 14:55 | Progress Notes ---
DATE: 09/28/2019 Case was discussed with staff of the patient, reviewed records. The patient is doing much better. He reported the voices are fading away. He is sleeping well, eating well. No side effects with the medication, no sedation, no nausea, no extrapyramidal symptoms. We will continue outpatient group therapy, milieu therapy, and adjust medications as needed. ____. [facility]# [id number]
[2019-09-29] MEDS: INSULIN LISPRO SLIDING SCALE 100 UNITS/ML UNIT SUBQ SCH (06:40)
[2019-09-29] MEDS: BIKTARVY PO SCH (08:35)
[2019-09-29] MEDS: Potassium Chloride 20 mEq ER Tab PO SCH (08:37)
--- NOTE | 2019-09-29 19:10 | Progress Notes ---
DATE: 09/29/2019 SUBJECTIVE: Case was discussed with staff of the patient, reviewed records. The patient is feeling better, waiting on placement. He sleeps well, eats well. Reported the voices are fading away. No suicidal ideation, no homicidal ideation, no paranoia, no side effects. We will continue outpatient group therapy, milieu therapy, and adjust medications as needed. [facility]# [id number]
[2019-09-30] MEDS: INSULIN LISPRO SLIDING SCALE 100 UNITS/ML UNIT SUBQ SCH (06:36)
[2019-09-30] MEDS: BIKTARVY PO SCH (10:02)
[2019-09-30] MEDS: Potassium Chloride 20 mEq ER Tab PO SCH (10:02)
--- NOTE | 2019-09-30 21:58 | Progress Notes ---
DATE: 09/30/2019 SUBJECTIVE: Case was discussed with staff of the patient, reviewed records. The patient has been much more stable. Sleeping well, eating well. No suicidal ideation, no homicidal ideation, no paranoia, no side effects. He seems to be stable. He is still on a wheelchair. The replacement that he was supposed to go they have the COVID-19 positive, so he cannot go there, so start working on placement. We will continue outpatient group therapy, milieu therapy, and adjust medications as needed. JOB# [id number]
[2019-10-01] MEDS: INSULIN LISPRO SLIDING SCALE 100 UNITS/ML UNIT SUBQ SCH (07:41)
[2019-10-01] MEDS: Potassium Chloride 20 mEq ER Tab PO SCH (08:56)
[2019-10-01] MEDS: BIKTARVY PO SCH (08:58)
--- NOTE | 2019-10-01 16:40 | Progress Notes ---
DATE: 10/01/2019 Case was discussed with staff of the patient, reviewed records. The patient is stable. He is on a wheelchair, has a problem with his legs. He is sleeping well, eating well. No suicidal ideation, no homicidal ideation, no paranoia, no side effects. No auditory or visual hallucination or paranoia. Working on discharge plan. Apparently, the place had accepted him, found that they have positive COVID-19, so we cannot really go. Working on different placements. hopefully be leaving soon. No side effects with the medication, no sedation, no nausea, no extrapyramidal symptoms. We will continue outpatient group therapy, milieu therapy, adjust medication as needed. JOB# [id number] MTDD
[2019-10-02] MEDS: INSULIN LISPRO SLIDING SCALE 100 UNITS/ML UNIT SUBQ SCH (06:38)
[2019-10-02] MEDS: Potassium Chloride 20 mEq ER Tab PO SCH (09:10)
[2019-10-02] MEDS: BIKTARVY PO SCH (09:10)
--- NOTE | 2019-10-02 20:28 | Progress Notes ---
DATE: 10/02/2019 Case was discussed with staff of the patient, reviewed records. The patient is doing better, sleeping well and eating well. He has better insight in general. He denies any paranoia. He denies having any side effects with the medication, no sedation, no nausea, no extrapyramidal symptoms. Working on discharge plan. Hopefully, place will be available tomorrow. We will continue outpatient group therapy, milieu therapy, adjust medication as needed. JOB# [id number] [facility]
[2019-10-03] MEDS: INSULIN LISPRO SLIDING SCALE 100 UNITS/ML UNIT SUBQ SCH (06:42)
[2019-10-03] MEDS: Potassium Chloride 20 mEq ER Tab PO SCH (08:40)
[2019-10-03] MEDS: BIKTARVY PO SCH (08:44)
--- NOTE | 2019-10-03 20:29 | Progress Notes ---
DATE: 10/03/2019 Case was discussed with staff of the patient, reviewed records. The patient is doing well, sleeping well, eating well. No suicidal ideation, no homicidal ideation, no paranoia, no side effects. He is compliant with the medication with no side effects. Working on placement, apparently has been having hard time finding placement because of his COVID-19 and no side effects with the medication, no sedation, no nausea, no extrapyramidal symptoms. We will continue outpatient group therapy, milieu therapy, adjust medication as needed. JOB# [id number]
[2019-10-04] MEDS: INSULIN LISPRO SLIDING SCALE 100 UNITS/ML UNIT SUBQ SCH (06:46)
[2019-10-04] MEDS: Potassium Chloride 20 mEq ER Tab PO SCH (09:05)
[2019-10-04] MEDS: BIKTARVY PO SCH (09:05)
--- NOTE | 2019-10-04 22:25 | Progress Notes ---
DATE: 10/04/2019 SUBJECTIVE: Case was discussed with staff of the patient, reviewed records. The patient is doing well, sleeping well and eating well. He denies any intent to harm himself or anyone. He denies any auditory or visual hallucination or paranoia. Denies having any side effects. Working on placement. He seems to be much more stable. We will continue outpatient group therapy, milieu therapy, and adjust medication as needed. JOB# [id number]
--- NOTE | 2019-10-05 11:31 | Discharge Summary ---
DATE OF DISCHARGE: 10/04/2019 IDENTIFYING INFORMATION: The patient is a 64-year-old male. CHIEF COMPLAINT: Unable to move around. HISTORY OF PRESENT ILLNESS: The patient who came from [facility] on hold, danger to self, grave disability, the patient with left-sided hemiparesis, on a wheelchair. When I talked to the patient, he was reporting that he used cocaine the week before, has been depressed for the last 6 months, unable to sleep. Appetite is good. He said sometimes he gets suicidal. He said he tried to strangle himself 2 weeks prior with a rope, hear voices for the last 2 weeks telling him to burn himself, kill himself, but he was willing to contract for safety. He has a history of being hospitalized at least 3 times because of his psychiatric condition. He is not sure what medication he was on. This has been going on for the last 6 months, has prior depression before that unable to be more specific. COURSE IN THE HOSPITAL: The patient was started on Depakote increased to 500 mg twice a day. He was on doxepin at 25 mg at bedtime. The patient also was on Haldol 5 mg twice a day. At the beginning, he was given Seroquel, but he did not do well despite increasing dose, so that was changed to Zyprexa, increased to 15 mg twice daily, when he took the Zyprexa started feeling much better. The patient also was on Xarelto. He was on metoprolol, magnesium, lisinopril, and insulin. The patient progressively got better. However, we will keep him longer because he would not be able to find him a place. . The patient has a high temperature. He was ready to go; however, has a high temperature, was transferred to a medical facility. CONDITION ON DISCHARGE: The patient was appropriately dressed and groomed. The patient can function socially. He needs help with his ADLs because of his hemiparesis. FINAL DIAGNOSES: Major depression, recurrent, severe with psychosis. Chronic alcohol abuse, polysubstance abuse, and cocaine mainly. MEDICAL DIAGNOSES: Hemiparesis, hypertension, diabetes mellitus, and high temperature. The patient will follow up with the psychiatrist, primary care physician and therapist. EXPECTED OUTCOME: Stable if the patient complies with the above. [facility]# [id number] RAMIRO
== END 2019-10-04 15:47 | disposition short-term general hospital (02) | DRG 885 ==
LOC: GERO 18:44
PROVIDERS: ADMIT Psychiatry & Neurology Psychiatry; ATTEND Psychiatry & Neurology Psychiatry
DX: F33.3 Major depressive disorder, recurrent, severe with psychotic symptoms (principal); I11.0 Hypertensive heart disease with heart failure; I48.92 Unspecified atrial flutter; J44.9 Chronic obstructive pulmonary disease, unspecified; I50.9 Heart failure, unspecified; I48.91 Unspecified atrial fibrillation; F14.10 Cocaine abuse, uncomplicated; Z86.73 Personal history of transient ischemic attack (TIA), and cerebral infarction without residual deficits; Z79.01 Long term (current) use of anticoagulants; E11.9 Type 2 diabetes mellitus without complications; F10.10 Alcohol abuse, uncomplicated; Y90.9 Presence of alcohol in blood, level not specified; F19.10 Other psychoactive substance abuse, uncomplicated; Z20.828 Contact with and (suspected) exposure to other viral communicable diseases; Z21 Asymptomatic human immunodeficiency virus [HIV] infection status
CPT/HCPCS: 36415-UA; 80053-TC; 80061-TC; 80164-TC; 81003-TC; 82948-90; 83036-90; 85025-TC; 90899; 97530; G0410; J7051; U0003-CS; X3904; Z7610

== ENCOUNTER 2019-10-07 12:52 | Inpatient (IN) | payer MEDICAID ==
[2019-10-08] MEDS ORDERED: Magnesium Hydroxide (MOM) 30 mL UDC PO PRN (08:38)
[2019-10-08] MEDS ORDERED: Maalox 30 mL Cup PO PRN (08:38)
[2019-10-08] MEDS ORDERED: Acetaminophen 500 MG TAB PO PRN (08:47)
--- NOTE | 2019-10-08 12:12 | Psychiatric Evaluation ---
DATE OF SERVICE: 10/08/2019 IDENTIFYING INFORMATION: The patient is a 64-year-old male, admitted to [facility] after medical clearance in [facility] due to danger to self and grave disability. CHIEF COMPLAINT: "Yeah, I am still depressed." HISTORY OF PRESENT ILLNESS: The patient is a 64-year-old male who was recently admitted to [facility]. The patient was being treated for major depression with psychosis. He was started on Haldol and doxepin and was improving. However, the patient did have a fever and was transferred to [facility] for medical clearance. The patient is now medically cleared and returns back to [facility] for ongoing treatment for his depression with psychosis. The patient was visited at bedside this morning. The patient reports that he continues to feel depressed. He reports that the voices are improving, but he does continue to have intermittent auditory hallucinations. He reports no side effects to the medications. He reports in terms of his depression that he has had poor sleep, changes in his appetite, intermittent suicidal thoughts. He apparently in the recent past attempted to strangle himself about 2 weeks ago. He reports that the voices when they do come cause him a significant amount of distress. At this time, the patient reports ongoing depression, suicidal thoughts, auditory hallucinations. No side effects to medications. He has been gradually improving with the medications and no side effects have been reported. PAST PSYCHIATRIC HISTORY: The patient has been hospitalized about 3 times. He has had a history of suicide attempts including 2 weeks prior to his first admission here to [facility] recently, where he tried to strangle himself to . The patient is currently prescribed Haldol and doxepin. PAST MEDICAL HISTORY: The patient has hemiparesis on the left side. He recently had a fever, but now medically cleared, currently in a wheelchair. ALLERGIES: No known drug allergies. SOCIAL HISTORY: The patient is single, never , no children, 10th grade education, never worked on [employer] FAMILY HISTORY: Denies. LEGAL HISTORY: Denies. SUBSTANCE USE HISTORY: The patient does admit to cocaine use, most recent use was 1 week prior to his first admission to [facility]. MENTAL STATUS EXAMINATION: The patient is somewhat unkempt appearing in a hospital gown, lying in the hospital bed. He is alert and oriented to person and place. The patient is a limited historian. The patient does know the year as 2019, but has difficulty with the month, not able to state the current president and able to state his name and date of . The patient's mood is depressed. Affect is constricted. Thought process is somewhat concrete. The patient reports intermittent suicidal thoughts and auditory hallucinations. Denies any visual hallucinations or homicidal thoughts. The patient insight, judgment and impulse control appear to be poor at this time. The patient's concentration is poor. His long-term memory appears to be intact. Recent memory appears to be intact. He is aware with good insight as why he is in the hospital. He is able to state what he ate for breakfast. His immediate memory appears to be limited. Unable to repeat things immediately after being stated to him. Insight is fair and judgment is poor. IMPRESSION: 1. Major depressive disorder, recurrent, severe with psychosis. 2. Stimulant use disorder, cocaine type. 3. Medical diagnosis deferred to medical doctor. ASSETS: The patient has fair insight asked for help. WEAKNESSES: The patient has poor coping skills. TREATMENT PLAN: We will restart the patient's medications, which include Haldol and doxepin. I reviewed the risks, benefits and alternatives of the medication that the patient is consenting to the treatment. We will also encourage the patient to verbalize his needs and to participate in group and milieu therapy. ESTIMATED LENGTH STAY: 5-7 days. DISCHARGE CRITERIA: The patient have decrease in his depression, no longer endorsing any suicidal thoughts, reduced auditory hallucinations and have a plan for self-care. [facility]# [id number] [facility]
[2019-10-08] MEDS ORDERED: [UNRECOGNIZED DRUG - OTHER] PO SCH (15:15)
--- NOTE | 2019-10-08 16:37 | History & Physical ---
ADMIT DATE: 10/08/2019 HISTORY OF PRESENT ILLNESS: We have a 64-year-old male with HIV, depression, who is transferred back from [facility]. The patient was found to have COVID pneumonia. The patient's 2 repeat COVIDs have been negative after that. No nausea, vomiting, abdominal pain, diarrhea. PAST MEDICAL HISTORY: 1. Status post COVID pneumonia. 2. Human immunodeficiency virus. 3. Hyperlipidemia. PAST SURGICAL HISTORY: None. MEDICATIONS: List reviewed. ALLERGIES: None. PHYSICAL EXAMINATION: VITAL SIGNS: Temperature 98.6, pulse 70, respirations 20, blood pressure ____. HEENT: Normocephalic, atraumatic head exam. NECK: Supple. CARDIOVASCULAR: Regular rate and rhythm. LUNGS: Decreased breath sounds. ABDOMEN: Soft, nontender. EXTREMITIES: No edema, cyanosis or clubbing. CN exam is grossly intact ASSESSMENT AND PLAN: 1. Human immunodeficiency virus. 2. Status post COVID pneumonia. 3. Hyperlipidemia. The patient will continue with supportive care. The patient will continue his HIV meds. We will follow along with you. JOB# [id number] RAMIRO
[2019-10-09] MEDS: INSULIN LISPRO SLIDING SCALE 100 UNITS/ML UNIT SUBQ SCH (06:53)
[2019-10-09] MEDS: Potassium Chloride 20 mEq ER Tab PO SCH (09:54)
--- NOTE | 2019-10-09 10:58 | Progress Notes ---
DATE: 10/09/[address] Zavala. SUBJECTIVE: The patient was interviewed. Case was discussed with staff. Chart and records were reviewed. Per the staff, the patient has been calm; however, mostly stays to his room, withdrawn and depressed. The patient interviewed this morning at bedside. He reports that he continues to feel depressed, continues to hear voices, continues to feel overwhelmed and stressed out because he has no place to go. The patient reports that he is feeling hopeless at times. He reports that his suicidal thoughts are improving, but they do intermittently come about. He reports that he feels safe here in the hospital. He reports no side effects to his medications. MENTAL STATUS EXAMINATION: The patient is an elderly male lying in the hospital bed, poor eye contact. Speech is soft. Mood and affect appear to be depressed and constricted. Thought process is concrete. He is endorsing intermittent suicidal thoughts. Denying any homicidal thoughts, endorsing ongoing auditory hallucinations, denying any visual hallucinations. The patient also does admit to being paranoid. He is alert and oriented to person and place. Insight, judgment and impulse control appear to be poor. ASSESSMENT AND PLAN: We will continue the patient's acute psychiatric hospitalization given the severity of his symptoms. We will also continue his medications as prescribed and observe for side effects. No side effects noted at this time, we will also encourage the patient to verbalize his needs and participate in groups and attend to his hygiene. [facility]# [id number]
[2019-10-10] MEDS: INSULIN LISPRO SLIDING SCALE 100 UNITS/ML UNIT SUBQ SCH (07:27)
[2019-10-10] MEDS: Potassium Chloride 20 mEq ER Tab PO SCH (08:20)
[2019-10-10] MEDS: BICTEGRAVIR EMTRICITABINE TENOFOVIR PO SCH (13:57)
--- NOTE | 2019-10-10 14:55 | Internal Medicine Prog Note ---
Internal Medicine Subjective - Subjective Service Date: 10/10/19 Patient seen and examined:: without staff Patient is:: awake Patient Complaints of:: congestion Per staff patient has:: no adverse event, no episodes of fall Internal Medicine Objective - Results Recent Labs: Laboratory Last Values POC Glucose 79 MG/DL (70 - 105) 10/10/19 06:49 - Physical Exam Vitals and I&O: Vital Signs Temp 96.9 F 10/10/19 14:30 Pulse 88 10/10/19 14:30 Resp 20 10/10/19 14:30 BP 119/71 10/10/19 14:30 Pulse Ox 99 10/10/19 14:30 Intake & Output 10/09/19 10/10/19 10/10/19 18:59 06:59 18:59 Intake Total 1100 0 Balance 1100 0 Intake: Oral 1100 0 Other: # Voids 3 # Bowel Movements 0 Stool Characteristics Soft Brown Active Medications: Current Medications Acetaminophen (Tylenol) 650 mg PO Q4H PRN PRN Reason: Temperature Above 100.4 Stop: 12/07/19 08:37 Acetaminophen (Tylenol) 650 mg PO Q4H PRN PRN Reason: Pain (Mild 1-3) Stop: 12/07/19 08:46 Acetaminophen (Tylenol Extra Strength) 1,000 mg PO Q6H PRN PRN Reason: Pain (Moderate 4-6) Stop: 12/07/19 08:46 Al Hydrox/Mg Hydrox/Simethicone (Maalox) 30 ml PO Q4HR PRN PRN Reason: GI DISTRESS Stop: 12/07/19 08:37 Atorvastatin Calcium (Lipitor) 40 mg PO HS [facility]; Protocol Stop: 12/07/19 20:59 Last Admin: 10/09/19 21:41 Dose: 40 mg Doxepin HCl (Sinequan) 25 mg PO HS [facility]; Protocol Stop: 12/07/19 20:59 Last Admin: 10/09/19 21:44 Dose: Not Given Famotidine (Pepcid) 20 mg PO BID [facility] Stop: 12/07/19 08:59 Last Admin: 10/10/19 08:20 Dose: 20 mg Furosemide (Lasix) 80 mg PO DAILY [facility] Stop: 12/07/19 08:59 Last Admin: 10/10/19 08:20 Dose: 80 mg Haloperidol (Haldol) 5 mg PO BID [facility]; Protocol Stop: 12/07/19 16:59 Last Admin: 10/10/19 13:56 Dose: Not Given Ibuprofen (Motrin) 400 mg PO Q4H PRN PRN Reason: Pain (Severe 7-10) Stop: 12/07/19 08:37 Insulin Human Lispro (Humalog Insulin Sliding Scale) 0 units SUBQ QDAC [facility]; Protocol Stop: 12/08/19 07:29 Last Admin: 10/10/19 07:27 Dose: Not Given Lisinopril (Zestril) 5 mg PO DAILY [facility] Stop: 12/07/19 08:59 Last Admin: 10/10/19 08:20 Dose: 5 mg Magnesium Hydroxide (Milk Of Magnesia) 30 ml PO HS PRN PRN Reason: Constipation Stop: 12/07/19 08:37 Metoprolol Succinate (Toprol Xl) 200 mg PO DAILY [facility] Stop: 12/07/19 08:59 Last Admin: 10/10/19 08:21 Dose: Not Given Patient Own Med- Bictegravir, Emtricitabine, Tenofovir 50/200/25mg 1 PO DAILY [facility] Stop: 12/09/19 10:59 Last Admin: 10/10/19 13:57 Dose: 1 Potassium Chloride (Klor-Con) 20 meq PO DAILY [facility] Stop: 12/07/19 08:59 Last Admin: 10/10/19 08:20 Dose: 20 meq Rivaroxaban (Xarelto) 20 mg PO HS [facility] Stop: 12/07/19 20:59 Last Admin: 10/09/19 21:41 Dose: 20 mg General: weak HEENT: NC/AT, PERRLA Neck: Supple, No JVD Lungs: CTAB Cardiovascular: RRR, Normal S1, Normal S2 Abdomen: soft Extremities: clear Internal Medicine Assmt/Plan - Assessment Assessment: 1. HIV - Plan Plan: continue meds
--- NOTE | 2019-10-10 22:43 | Progress Notes ---
DATE: 10/10/2019 Case was discussed with staff of the patient, reviewed records. The patient was readmitted on 10/08/2019 after he was medically cleared at [facility]. The patient currently seems to be showing progress. He was started back on his medication of Haldol and doxepin. The patient was transferred to [facility] because of fever and now he is medically cleared. The patient continues to be depressed, though he is feeling better compared to how he was here before. He reported the voices are not as prominent. He is on a wheelchair. The patient is with hemiparesis. The patient is unable to make safe plan for self-care. He denies any homicidal ideation. The suicidal ideations are not prominent. The hallucinations also are not as prominent. He is sleeping better, eating better. No side effects with the medication, no sedation, no nausea, no extrapyramidal symptoms and we will continue to work with the patient in group therapy, milieu therapy, and adjust the medication as needed. JOB# [id number]
[2019-10-11] MEDS: INSULIN LISPRO SLIDING SCALE 100 UNITS/ML UNIT SUBQ SCH (06:21)
[2019-10-11] MEDS: Potassium Chloride 20 mEq ER Tab PO SCH (08:29)
--- NOTE | 2019-10-11 19:52 | Progress Notes ---
DATE: 10/11/2019 Case was discussed with staff of the patient, reviewed records. The patient seems to be stable. He is on a wheelchair. He is sleeping well, eating well. No suicidal ideation, no homicidal ideation, no paranoia. No additional visual hallucination. Sleeping better and eating better. We are working on placement for this patient. We will continue outpatient group therapy, milieu therapy, adjust medication as needed. [facility]# [id number]
[2019-10-12] MEDS: INSULIN LISPRO SLIDING SCALE 100 UNITS/ML UNIT SUBQ SCH (06:37)
[2019-10-12] MEDS: Potassium Chloride 20 mEq ER Tab PO SCH ×2 (09:59→10:04)
[2019-10-12] MEDS: BICTEGRAVIR EMTRICITABINE TENOFOVIR PO SCH ×2 (10:00→10:05)
[2019-10-12 13:12] LABS: CALCIUM SERUM 8.6 mg/dL (8.4-10.2); CREATININE - SERUM 1.28 mg/dL (0.70-1.30); POTASSIUM SERUM 4.5 mmol/L (3.5-5.1)
[2019-10-12 13:13] LABS: BILIRUBIN,TOTAL 0.4 mg/dL (0.0-1.0); TOTAL PROTEIN,SERUM 7.1 g/dL (6.4-8.3)
[2019-10-12 14:29] LABS: HEMATOCRIT 39.7 % (36-54); HEMOGLOBIN 12.6 g/dL (14.0-18.0); MEAN CORPUSCULAR HEMOGLOBIN 26 pg (27-31); MEAN CORPUSCULAR HGB CONC 32 % (32-36); MEAN CORPUSCULAR VOLUME 81 fL (79.0-98.0); PLATELET COUNT 278 K/uL (130-430); RED BLOOD COUNT 4.91 MIL/uL (4.2-6.2); RED CELL DISTRIBUTION WIDTH 21.5 % (9.0-15.0); WHITE BLOOD COUNT 4.1 K/uL (4.8-10.8)
[2019-10-12 14:30] LABS: % NEUTROPHILS 40.8 % (40-70); BASOPHILS # (AUTO) 0.1 K/uL (0.0-0.2); BASOPHILS % (AUTO) 1.3 % (0.0-2.0); EOSINOPHILS # (AUTO) 0.3 K/uL (0.0-0.4); EOSINOPHILS % (AUTO) 6.2 % (0-4); LYMPHOCYTES # (AUTO) 1.3 K/uL (1.0-5.5); LYMPHOCYTES % (AUTO) 31.9 % (20.5-51.5); MONOCYTES # (AUTO) 0.8 K/uL (0.0-1.0); MONOCYTES % (AUTO) 19.8 % (1.7-9.3); NEUTROPHILS # (AUTO) 1.7 K/uL (1.8-7.7)
--- NOTE | 2019-10-12 16:03 | Progress Notes ---
DATE: 10/12/2019 SUBJECTIVE: Case was discussed with staff of the patient, reviewed records. The patient is stable. Sleeping well, eating well. No suicidal ideation, homicidal ideation, no paranoia, no side effects. Advised the staff that extends to get any placement for him. He is ready to go to a lesser level of care. No side effects with medications, no sedation, no nausea, no extrapyramidal symptoms. We will continue outpatient group therapy, milieu therapy, adjust medication as needed. JOB# [id number]
[2019-10-13] MEDS: INSULIN LISPRO SLIDING SCALE 100 UNITS/ML UNIT SUBQ SCH (06:40)
[2019-10-13] MEDS: BICTEGRAVIR EMTRICITABINE TENOFOVIR PO SCH (08:35)
[2019-10-13] MEDS: Potassium Chloride 20 mEq ER Tab PO SCH (08:36)
--- NOTE | 2019-10-13 18:25 | Progress Notes ---
DATE: 10/13/2019 Case was discussed with staff of the patient, reviewed records. He is on a wheelchair. He is sleeping better, eating better. COVID test was done as he was accepted at [place], so he can go to an assisted facility. No side effects with the medication, no sedation, no nausea, no extrapyramidal symptoms. Denies any current delusions or paranoia. Denies any intent to harm himself or anyone. I will continue outpatient group therapy, milieu therapy, adjust medication as needed. JOB# [id number]
[2019-10-14] MEDS: INSULIN LISPRO SLIDING SCALE 100 UNITS/ML UNIT SUBQ SCH (06:48)
[2019-10-14] MEDS: Potassium Chloride 20 mEq ER Tab PO SCH (08:43)
[2019-10-14] MEDS: BICTEGRAVIR EMTRICITABINE TENOFOVIR PO SCH (08:54)
--- NOTE | 2019-10-14 18:17 | Progress Notes ---
DATE: 10/14/2019 Case was discussed with staff of the patient, reviewed records. The patient is stable. Sleeping well, eating well. No suicidal ideation, no homicidal ideation, no paranoia COVID-19 results came back negative. So at this point, the patient will be going to [facility]. However, they need a notice, so they are going to call the patient to arrange for discharge; however, they cannot do it today, has to wait until Thursday and will continue outpatient group therapy, milieu therapy, adjust medication as needed. JOB# [id number]
[2019-10-15] MEDS: INSULIN LISPRO SLIDING SCALE 100 UNITS/ML UNIT SUBQ SCH (06:59)
[2019-10-15] MEDS: Potassium Chloride 20 mEq ER Tab PO SCH (08:14)
[2019-10-15] MEDS: BICTEGRAVIR EMTRICITABINE TENOFOVIR PO SCH (08:14)
--- NOTE | 2019-10-15 14:22 | Progress Notes ---
DATE: 10/15/2019 A 64-year-old male coming to [facility], still depressed, down, treated for major depression, started on Haldol, doxepin. Had a fever, transferred to [facility]. The patient on [id number] still depressed, down, seems to be mumbling to self, noting he feels "better" and states that he wants to leave, but unclear exactly where he is going to go. Ongoing confusional state. 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 There were some concerns about COVID-19, but those results were negative. The patient seems to be calmer. No overt agitation or escalation of behaviors. Some episodes of forgetfulness and confusion noted on exam. The patient wanting to leave as soon as possible, but there is no current confirmation that he can leave today. Concerns for his ability to really function at a lower level of care given that he is somewhat confused, disabled and in wheelchair. Concerns that he may not be able to take care of his basic needs, given also chronic mental illness. Currently on dosing of doxepin, Haldol. Seems to be doing well. Vitals were noted. No fevers. We will continue inpatient monitoring. JOB# [id number]
[2019-10-16] MEDS: INSULIN LISPRO SLIDING SCALE 100 UNITS/ML UNIT SUBQ SCH (06:49)
[2019-10-16] MEDS: BICTEGRAVIR EMTRICITABINE TENOFOVIR PO SCH (08:21)
[2019-10-16] MEDS: Potassium Chloride 20 mEq ER Tab PO SCH (08:22)
--- NOTE | 2019-10-16 09:29 | Progress Notes ---
DATE: 10/16/2019 SUBJECTIVE: A 64-year-old male, currently in the hospital due to serious depression, ongoing psychological distress, turmoil, intermittent suicidal thoughts, voices; apparently tried to strangle himself in the past. When I go see him this morning, he is somewhat irritable, does not really want to engage with me. Unfortunately, the patient is still endorsing depression down, but is noting that he is feeling better. He continues to express to me and staff that he would like to leave home. Fair orientation focused on discharge. Noted to be irritable towards me and staff and not particularly aggressive. Tolerant to medications. Medications were reviewed. Labs were reviewed. Vitals were reviewed. ASSESSMENT: The patient does seem to be improving, somewhat irritable; any suicidal thoughts are lessening, decreasing; psychotic symptoms are lessening, decreasing; is unclear exactly where he is going to go. Concerns about grave disability at this point. The patient is apparently homeless. There are concerns about his ability to tend to his basic needs given that he is disabled, mildly confused. PLAN: We will continue inpatient monitoring for now. Coordinate care with health care social worker. JOB# [id number]
[2019-10-17] MEDS: INSULIN LISPRO SLIDING SCALE 100 UNITS/ML UNIT SUBQ SCH (06:31)
[2019-10-17] MEDS: BICTEGRAVIR EMTRICITABINE TENOFOVIR PO SCH (08:43)
[2019-10-17] MEDS: Potassium Chloride 20 mEq ER Tab PO SCH (08:43)
--- NOTE | 2019-10-17 19:22 | Discharge Summary ---
DATE OF DISCHARGE: 10/17/2019 IDENTIFYING INFORMATION: The patient is a 64-year-old male. CHIEF COMPLAINT: "I am still depressed." HISTORY OF PRESENT ILLNESS: The patient was recently at this facility, was discharged because he has high temperature. The patient prior to discharge was on Haldol and doxepin is improving. He was hearing voices to kill himself, but there is fading away before his discharge: The patient was transferred to [facility] and then sent back after being medically cleared. When I talk to him, he reports improved. He reported the hallucinations were fading away. He was sleeping well, eating well, sometimes intermittent suicidal thoughts, but not as prominent. The patient attempted to strangle himself 2 weeks prior to his previous admission that is when he was hearing voices to kill himself. The patient was hospitalized at least 3 times before with a history of suicide attempt. The patient with hemiparesis, left-sided he was on a wheelchair throughout his stay. No known drug allergy. COURSE IN THE HOSPITAL: The patient was diagnosed with major depression, recurrent, severe with psychosis and stimulant use disorder, cocaine abuse. The patient was continued on medication, which is Haldol 5 mg at bedtime, doxepin 25 mg at bedtime, famotidine, Lasix, Haldol was increased to 5 mg twice a day. The patient was also on insulin, ibuprofen, lisinopril, metoprolol, potassium, and Xarelto. The patient progressively got better, manage to find a place at [place], so as he improved, he was no longer depressed, no longer hearing voices, no longer having any intent to harm himself or anyone. We felt he could be discharged to a lesser level of care. FINAL DIAGNOSES: Major depression, recurrent, severe with psychosis. Substance abuse. The patient would be going to [place]. CONDITION ON DISCHARGE: The patient is able to function socially; however, he is on a wheelchair, can take care of his ADLs, need help because of his hemiparesis. However, he is functioning well intellectually. The patient will follow up with primary care physician there. MEDICAL DIAGNOSIS: As per medical doctor. EXPECTED OUTCOME: Stable, if the patient complies with the above. JOB# [id number]
== END 2019-10-17 16:15 | DRG 885 ==
LOC: GERO 10-08 07:51
PROVIDERS: ADMIT Psychiatry & Neurology Psychiatry; ATTEND Psychiatry & Neurology Psychiatry
DX: F33.3 Major depressive disorder, recurrent, severe with psychotic symptoms (principal); E44.0 Moderate protein-calorie malnutrition; F14.90 Cocaine use, unspecified, uncomplicated; E78.5 Hyperlipidemia, unspecified; Z20.828 Contact with and (suspected) exposure to other viral communicable diseases; Z21 Asymptomatic human immunodeficiency virus [HIV] infection status; Z68.25 Body mass index [BMI] 25.0-25.9, adult
CPT/HCPCS: 36415-UA; 80053-TC; 82948-90; 85025-TC; 90899; 97530; G0410; U0003-CS; X3904